=== PATIENT | female | born 1940 | race Caucasian/White ===

== ENCOUNTER 2018-10-18 16:38 | Inpatient (IN) | payer MEDICARE, OTHER ==
[2018-10-18] MEDS ORDERED: Morphine 10 MG/ML VIAL (1 ml) IV ONE ×2 (17:53→19:10)
[2018-10-18 18:10] LABS: ABS Basophils 0 10^3/ul (0-0.2); ABS Eosinophils 0 10^3/ul (0-0.6); ABS Lymphocytes 0.9 10^3/ul (1.0-4.8); ABS Monocytes 0.5 10^3/ul (0-0.8); ABS Neutrophils 12.6 10^3/ul (1.5-7.7); ABS Nucleated RBC 0 10^3/ul; Eosinophil % 0.2 %; Hematocrit 39 % (33-41); Hemoglobin 12.6 g/dL (12.0-16.0); Lymphocyte % 6.1 %; Mean Corpuscular HGB Conc 33 g/dL (31-36); Mean Corpuscular Hemoglobin 28 pg (27-31); Mean Corpuscular Volume 86 fL (80-97); Mean Platelet Volume 7.5 fL (7.4-10.4); Nucleated Red Blood Cells % 0; Platelet Count 330 10^3/uL (150-450); Red Blood Count 4.47 10^6 /uL (3.70-4.87); Red Cell Distribution Width 14 % (10.5-15)
[2018-10-18 18:19] LABS: Activated Partial Thrombo Time 25.5 seconds (26.0-36.3); INR 1.08 (0.77-1.02)
[2018-10-18 18:25] LABS: Albumin 4.1 g/dL (3.2-5.2); BUN/Creatinine Ratio 25.7 (8-20); EGFR African American 91.8 (>60); EGFR Non-African American 75.9 (>60); Globulin 2.1 g/dL (2-4); Potassium 3.9 mmol/L (3.5-5.0); Total Bilirubin 0.7 mg/dL (0.2-1.0); Total Protein 6.2 g/dL (6.4-8.9)
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
--- NOTE | 2018-10-18 19:48 | OP ---
Operative Report - Blank - Operative Report Date of Operation: 10/18/18 Note: Orthopedic Surgery Consultation Date: 10/18/2018 Requesting Service: ER Chief Complaint: Left hip pain. History: A 78-year-old woman who was walking her dog this afternoon, when the dog went to run and pulled on her leash making her fall. She denies pain anywhere other than her left hip. Denies head strike or loss of consciousness. Denies any prior problems with the hip. The pain is located at the left hip and is constant moderate, sharp. Pain worse with hip ROM and lessened when rested. Review of Systems: Negative for fever, recent visual changes, difficulty swallowing, chest pain, shortness of breath, abdominal pain, hematuria, easy bruising, diffuse weakness or lack of coordination, and diffuse rash. PMH: Atrial fibrillation, GERD, hypertension PSH: Lumbar spinal fusion, Medications: Metoprolol, furosemide, warfarin, lansoprazole, losartan, baby aspirin Allergies: Penicillin, sulfa SH: She recently sold her house and is currently living with her son. No ambulatory assistive devices at baseline. She is quite active. No tobacco or alcohol use. FH: Noncontributory Physical Examination: Constitutional: Temp Pulse Resp BP Pulse Ox 98.4 F 83 18 117/77 94 10/18/18 16:58 10/18/18 19:00 10/18/18 19:18 10/18/18 18:53 10/18/18 19:00 General appearance is healthy and non-septic in no acute distress. Cardiovascular: Pulse examination demonstrates positive pedal pulses with brisk capillary refill. There are no varicosities. Abdomen: Soft and nontender Lymphatic: No lymphadenopathy appreciated. Skin: Bilateral upper and lower extremity examination demonstrates no ulcerative lesions. Psychiatric / Neurological: Appropriate affect. Alert and oriented to person, place and time. There is no significant abnormality in coordination appreciated. Normoreflexive deep tendon reflex of the affected extremity. Musculoskeletal: Bilateral upper extremities and contralateral lower extremity show full range of motion with no evidence of instability and no tenderness with palpation and 5 /5 strength. There is no gross deformity. The extremity is shortened and externally rotated Skin intact 5/5 motor strength distally with intact sensation to light touch There is no global swelling, edema, or varicosities. Pain with logroll and heel strike No TTP at knee, lower leg, ankle, foot Palpable DP pulse. Flexes and extends ankle and toes. Imaging: X-rays were obtained, and independently interpreted and show a displaced left femoral neck fracture. Labs: WBC 14.0 HCT 39 Platelets 330 Cr 0.74 INR 1.08 Impression and Plan: Displaced left femoral neck fracture. We discussed both nonoperative and operative treatment options. My recommendation is surgical intervention when medically cleared. We discussed the risks/benefits and pros/cons of both options. She is being admitted to the medical service. For now, nonweightbearing in the left lower extremity. Appreciate medical clearance. I recommend chemical and mechanical DVT prophylaxis, but please hold her warfarin in preparartion for surgery. Florentin Kessler MD
[2018-10-18] MEDS ORDERED: Ondansetron INJ* 2 MG/ML VIAL IV PRN (20:21)
[2018-10-18] MEDS ORDERED: Al Hydrox/Mg Hydrox/Simet LIQ* 30 ML UDC PO PRN (20:21)
[2018-10-18] MEDS ORDERED: Morphine INJ* 2 MG/ML 1 ML SYRINGE (TWO MG - NEW SYRINGE VERSION) IV PRN (20:21)
[2018-10-18] MEDS: Morphine 4 MG/ML VIAL (1 ml) 4 MG/ML VIAL IV PRN (21:35)
--- NOTE | 2018-10-18 22:14 | HP ---
CC: Simon Arciniega MD * HISTORY AND PHYSICAL: DATE OF ADMISSION: 10/18/18 TIME OF EVALUATION: 1999 PRIMARY CARE PHYSICIAN: Simon Arciniega MD CHIEF COMPLAINT: Fall and left hip injury. HISTORY OF PRESENT ILLNESS: This is a 78-year-old female with a past medical history of paroxysmal atrial fibrillation, on Coumadin, who presents to the emergency room after having a mechanical fall. The patient states she was in her usual state of health when she took the dog out with the chain. He began running out into the road because it saw a person. She held onto the chain. She was worried he was going to run into the road and he pulled her and dragged her off the steps into the lawn and she did not let go and suffered a significant amount of left-sided hip pain. She was brought in via ambulance and discovered to have displaced left femoral neck fracture. The patient states she was in her usual state of health prior to this. No chest pain, no shortness of breath. She normally ambulates independently without any assistive devices. She ambulates the stairs without any chest pain or shortness of breath. She states she recently sold her house and has been living with her son and his 28-year-old girl and has been more active recently, has lost some weight. No lower extremity swelling, no abdominal pain, no weakness. She was planning to go to [place] in a few days to assess her living situation as she was thinking about relocating there. In the emergency room, the patient had labs, imaging. She was found to, as mentioned, have a left hip fracture. Dr. Kessler evaluated the patient and recommended surgery when she was medically cleared. In the emergency room, the patient was given 4 mg of morphine IV. Otherwise, review of systems is negative. PAST MEDICAL HISTORY: 1. History of diastolic heart failure. 2. Hypertension. 3. Paroxysmal atrial fibrillation. 4. GERD. PAST SURGICAL HISTORY: 1. Lumbar spinal fusion in 2015. 2. History of . MEDICATIONS: 1. Warfarin 2.5 mg p.o. daily. 2. Losartan 100 mg p.o. daily. 3. Tylenol 500 mg every 4 hours as needed. 4. Metoprolol succinate 25 mg daily. 5. Furosemide 40 mg daily. 6. Aspirin 81 mg daily. 7. Lansoprazole 30 mg daily. ALLERGIES: PENICILLIN and SULFA. FAMILY HISTORY: Reviewed and noncontributory. SOCIAL HISTORY: The patient as mentioned has recently sold her house in [place]. She is currently living with her son and 28-year-old granddaughter. She ambulates independently. She quit smoking 4 years ago; at that time, she smoked 3/4 of a pack per day for 40 years. Rare alcohol use. Her son, Drew Saab, is her healthcare proxy. Code status is full code. REVIEW OF SYSTEMS: A 14-point review of systems as mentioned in the HPI; otherwise, negative. PHYSICAL EXAMINATION GENERAL: No acute distress, resting comfortably. VITAL SIGNS: Temp 98.4, pulse rate 79, respiratory rate 18, oxygen saturation 96% on 2 L, blood pressure 117/77. HEENT: Head normocephalic. Pupils equal and reactive. Oropharynx: Mucous membranes moist. No erythema or exudate. NECK: Supple, no lymphadenopathy. RESPIRATORY: Diminished breath sounds. No wheezing, rhonchi, or rales. CARDIAC: Regular rate and rhythm. Soft systolic murmur heard throughout. ABDOMEN: Positive bowel sounds. Soft, nontender, nondistended. EXTREMITIES: Left lower extremity is short and externally rotated. +2 DPs bilateral. She has significant amount of varicosities bilaterally. Sensation intact. Able to move her extremities and good cap refill. NEUROLOGIC: Alert and oriented x3. No gross focal neurologic deficits. DIAGNOSTIC STUDIES/LAB DATA: White count 14, hemoglobin 12.6, hematocrit 39, platelets 330. INR is 1.08. Sodium 141, potassium 3.9, chloride 106, bicarb 29 , BUN 19, creatinine 0.74, glucose 119, lactic acid is 1. Radiographic data: Abdomen and pelvis x-ray shows displaced femoral neck fracture. EKG shows sinus rhythm with PACs. ASSESSMENT: This is a 78-year-old female with past medical history of hypertension; atrial fibrillation, on Coumadin; diastolic heart failure; who presents to the emergency room after suffering a mechanical fall, found to have a left femoral neck fracture. 1. Left femoral neck fracture. Assessment: Mechanical fall. There is no contraindication to proceeding with surgery. Her RCRI index is 1 with her history of heart failure. Plan: Per Surgery. As mentioned, no contraindication to proceeding for surgery. We will get a baseline chest x-ray. We will continue to hold her aspirin and her Coumadin. We will also hold her losartan and Lasix and continue her on her metoprolol. Recommend resuming her Coumadin and aspirin postoperatively as well as her losartan and Lasix when it is indicated. Continue her on pain management. We will include a bowel regimen as well. We will also place a Siegel catheter and keep her on bedrest until she proceeds to the OR. We will keep her n.p.o. After midnight. We will place her on gentle IV fluids at midnight. 2. Gastroesophageal reflux disease. We will continue her on pantoprazole and place her on lansoprazole. 3. FEN. Regular diet. N.p.o. after midnight with gentle IV fluids. 4. DVT prophylaxis. The patient scores high risk. We will place her on heparin subcu t.i.d. 5. Code status: Full code. PATIENT TIME: Greater than 45 minutes was spent doing the history and physical , more than half the time was spent in direct patient contact. [id number]/[facility] #: [id number] ANNETTE
[2018-10-18] MEDS: NS 0.9% 1000 ML** 1,000 ML IV SCH (22:58)
[2018-10-18] MEDS: Senna TAB PO SCH (23:02)
[2018-10-18] MEDS: Docusate CAP* 100 MG PO SCH (23:02)
[2018-10-18] MEDS: Heparin VIAL(*) 5000 UNITS/ML VIAL (FIVE THOUSAND) SUBCUT SCH (23:37)
[2018-10-18] MEDS: oxyCODONE/Acetamin 5/325 MG* TAB PO PRN (23:42)
[2018-10-19] MEDS: Morphine 4 MG/ML VIAL (1 ml) 4 MG/ML VIAL IV PRN ×4 (03:28→19:36)
[2018-10-19 05:18] LABS: ABS Basophils 0 10^3/ul (0-0.2); ABS Eosinophils 0.1 10^3/ul (0-0.6); ABS Lymphocytes 1.6 10^3/ul (1.0-4.8); ABS Monocytes 0.4 10^3/ul (0-0.8); ABS Nucleated RBC 0 10^3/ul; Eosinophil % 0.7 %; Hematocrit 38 % (33-41); Hemoglobin 12.4 g/dL (12.0-16.0); Lymphocyte % 13.9 %; Mean Corpuscular HGB Conc 33 g/dL (31-36); Mean Corpuscular Hemoglobin 28 pg (27-31); Mean Corpuscular Volume 87 fL (80-97); Mean Platelet Volume 7.5 fL (7.4-10.4); Nucleated Red Blood Cells % 0; Platelet Count 295 10^3/uL (150-450); Red Blood Count 4.42 10^6 /uL (3.70-4.87); Red Cell Distribution Width 15 % (10.5-15); White Blood Count 11.2 10^3/uL (3.5-10.8)
[2018-10-19 05:26] LABS: INR 1.13 (0.77-1.02)
[2018-10-19] MEDS: Heparin VIAL(*) 5000 UNITS/ML VIAL (FIVE THOUSAND) SUBCUT SCH ×2 (05:30→14:01)
[2018-10-19 05:36] LABS: BUN/Creatinine Ratio 28.6 (8-20); Calcium 8.6 mg/dL (8.6-10.3); EGFR African American 97.9 (>60); EGFR Non-African American 80.9 (>60); Magnesium 1.8 mg/dL (1.9-2.7); Potassium 3.8 mmol/L (3.5-5.0)
[2018-10-19] MEDS: Docusate CAP* 100 MG PO SCH ×2 (07:34→20:05)
[2018-10-19] MEDS ORDERED: Magnesium Sulfate 2 GM IV* 2 GM/50 ML BAG IVPB ONE (07:47)
[2018-10-19] MEDS: Metoprolol Succinate XL TAB* 25 MG PO SCH (08:29)
[2018-10-19] MEDS: Pantoprazole TAB * 40 MG TAB PO SCH (08:29)
[2018-10-19] MEDS: Senna TAB PO SCH ×2 (08:29→20:05)
--- NOTE | 2018-10-19 08:36 | PN ---
Progress Note - Progress Note Date of Service: 10/19/18 Note: Orthopedic Progress note: 78 yo woman referred to me by Dr. Kessler with a displaced left femoral neck fracture. This happened yesterday accidentally when walking her dog on a leash and the dog bolted and pulled her over. She does not have other injuries. H&P was done by Dr. Kessler. Patient has had cephalosporins and is OK for Ancef. PMH: A Fib, GERD, spinal fusion in [place]. She is on Coumadin and none today or yesterday and she is not certain about 10/17. Px: Awake, alert, cooperative and not acutely distressed at rest. She is not eager to move the left hip. She moves her right leg with ease, and can move the left ankle up and down actively. INR is 1.08, then 1.13. aPTT 25.5, H/H 12/38. WBC 11,200, PLTS 295,000. Mg 1.8. Impression: Displaced left femoral neck fracture. Plans: Left total hip replacement. Other treatments discussed and lesser surgery has 30-40% chance of not working out or not relieving pain as well as a hip replacement. Risks, complications of hip replacement like infection, dislocation, leg length inequality, nerve injury, blood loss were reviewed and questions answered.
[2018-10-19] MEDS: oxyCODONE/Acetamin 5/325 MG* TAB PO PRN (10:01)
--- NOTE | 2018-10-19 12:53 | PN ---
Subjective Date of Service: 10/19/18 Interval History: Ms. Saab is feeling a bit better today. Her pain remains an 8/10 at rest, but decreases to 4/10 after pain medication. She is also using ice which is somewhat helpful. She denies CP, SOB, N/V. Nursing reported some hypoxia this morning. She was requiring 4L NC to maintain saturations in the low 90s, but no respiratory distress. Family History: Unchanged from Admission Social History: Unchanged from Admission Past Medical History: Unchanged from Admission Objective Active Medications: Acetaminophen (Tylenol Tab*) 650 mg PO Q4H PRN FEVER/PAIN Al Hydrox/Mg Hydrox/Simethicone (Maalox Plus*) 30 ml PO Q6H PRN INDIGESTION Docusate Sodium (Colace Cap*) 100 mg PO BID [facility] Heparin Sodium (Porcine) (Heparin Vial(*)) 5,000 units SUBCUT Q8HR [facility] Sodium Chloride (Ns 0.9% 1000 Ml) 1,000 mls @ 75 mls/hr IV PER RATE [facility] Metoprolol Succinate (Toprol Xl Tab*) 25 mg PO DAILY [facility] Morphine Sulfate (Morphine 4 Mg/Ml Vial (1 Ml)) 2 mg IV Q4H PRN PAIN - MILD Ondansetron HCl (Zofran Inj*) 4 mg IV Q4H PRN NAUSEA/VOMITING Oxycodone/Acetaminophen (Percocet 5/325 Tab*) 1 tab PO Q4H PRN Pain Pantoprazole Sodium (Protonix Tab*) 40 mg PO DAILY [facility] Senna (Senokot Tab*) 1 tab PO BID [facility] Vital Signs - 8 hr 10/19/18 10/19/18 10/19/18 07:12 07:39 08:00 Temperature Pulse Rate Respiratory 20 18 18 Rate Blood Pressure (mmHg) O2 Sat by Pulse Oximetry 10/19/18 10/19/18 09:44 10:01 Temperature 99.3 F Pulse Rate 120 Respiratory 18 18 Rate Blood Pressure 98/57 (mmHg) O2 Sat by Pulse 91 Oximetry Oxygen Devices in Use Now: Nasal Cannula - 2L Appearance: Elderly female laying in bed in NAD Eyes: No Scleral Icterus Ears/Nose/Mouth/Throat: Mucous Membranes Moist Neck: NL Appearance and Movements; NL JVP, Trachea Midline Respiratory: Symmetrical Chest Expansion and Respiratory Effort, Clear to Auscultation Cardiovascular: NL Sounds; No Murmurs; No JVD, RRR Abdominal: NL Sounds; No Tenderness; No Distention Extremities: No Edema Skin: No Rash or Ulcers Neurological: Alert and Oriented x 3 Lines/Tubes/Other Access: Clean, Dry and Intact Peripheral IV Result Diagrams: 10/19/18 04:56 10/19/18 04:56 Assess/Plan/Problems-Billing Assessment: Ms. Saab is a 78 yo F with PMH of paroxsymal afib, dCHF, HTN, and GERD; who presented to the ED after a mechanical fall with subsequent hip pain and was found to have a left femoral neck fracture. - Patient Problems (1) Fracture of femoral neck, left Code(s): S72.002A - FRACTURE OF UNSP PART OF NECK OF LEFT FEMUR, INIT Comment : - Secondary to mechanical fall - Xray shows nondisplaced fracture - Management per Ortho; plan for surgery tomorrow - NPO after midnight; stop heparin tonight - Continue morphine, Percocet (2) Paroxysmal atrial fibrillation Code(s): I48.0 - PAROXYSMAL ATRIAL FIBRILLATION Comment: - Rate controlled - Hold warfarin - Continue metoprolol (3) Chronic diastolic congestive heart failure Code(s): I50.32 - CHRONIC DIASTOLIC (CONGESTIVE) HEART FAILURE Comment: - Stable, not in exacerbation - Hold furosemide - Continue metoprolol (4) Hypertension Code(s): I10 - ESSENTIAL (PRIMARY) HYPERTENSION Comment: - Normotensive, SBP 90-120s - Hold losartan - Continue metoprolol (5) GERD (gastroesophageal reflux disease) Code(s): K21.9 - GASTRO-ESOPHAGEAL REFLUX DISEASE WITHOUT ESOPHAGITIS Comment : - Continue pantoprazole (6) DVT prophylaxis Comment: - Heparin SQ (7) Full code status Code(s): Z78.9 - OTHER SPECIFIED HEALTH STATUS Comment: Status and Disposition: Inpatient. Anticipate d/c home vs [facility] when medically stable and cleared by Ortho. Attending: Simi Arteaga
[2018-10-19] MEDS: NS 0.9% 1000 ML** 1,000 ML IV SCH ×2 (14:01→23:59)
[2018-10-19] MEDS ORDERED: Buffered Lidocaine 1% SYRIN* 1 ML/SYRINGE INTRADERM ONE (14:29)
[2018-10-19] MEDS: Acetaminophen TAB* 325 MG PO PRN (20:02)
[2018-10-19 21:25] LABS: ABS Basophils 0 10^3/ul (0-0.2); ABS Eosinophils 0.1 10^3/ul (0-0.6); ABS Lymphocytes 0.8 10^3/ul (1.0-4.8); ABS Monocytes 0.7 10^3/ul (0-0.8); ABS Neutrophils 11.1 10^3/ul (1.5-7.7); ABS Nucleated RBC 0 10^3/ul; Eosinophil % 0.8 %; Hematocrit 38 % (33-41); Hemoglobin 12.2 g/dL (12.0-16.0); Lymphocyte % 6.5 %; Mean Corpuscular HGB Conc 33 g/dL (31-36); Mean Corpuscular Hemoglobin 28 pg (27-31); Mean Corpuscular Volume 87 fL (80-97); Mean Platelet Volume 7.8 fL (7.4-10.4); Nucleated Red Blood Cells % 0.1; Platelet Count 264 10^3/uL (150-450); Red Blood Count 4.35 10^6 /uL (3.70-4.87); Red Cell Distribution Width 15 % (10.5-15); White Blood Count 12.8 10^3/uL (3.5-10.8)
[2018-10-19] MEDS: cefTRIAXone(*) 1 GM in NS 0.9% 50 ML* 50 ML IVPB SCH (21:27)
--- NOTE | 2018-10-19 21:30 | PN ---
Hospitalist Progress Note Date of Service: 10/19/18 Called by Nursing staff for low oxygen saturations 85 % on 2 liters, and tachycardia HR 130's. Assessed patient at the bedside skin hot to the touch , lung with exp wheezes and diminished at the bases bilat, respirations not labored. Patient alert and oriented x3. NO alteration in mentation. ordered rectal temp 102.5 , HR 125 respirations 22 suspected source lungs. Oxygen increased to 5 liters NC. CODE sepsis called. STAT CBC,BMP, Lactic acid and blood cultures ordered. UA and culture ordered. Tylenol po given
[2018-10-19 21:42] LABS: BUN/Creatinine Ratio 30.5 (8-20); Calcium 8.1 mg/dL (8.6-10.3); EGFR African American 119.3 (>60); EGFR Non-African American 98.6 (>60); Potassium 3.9 mmol/L (3.5-5.0)
[2018-10-19 21:42] LABS: Urine Appearance Cloudy; Urine Bacteria 1+ (Absent); Urine Bilirubin Negative (Negative); Urine Blood 3+ (Negative); Urine Color Yellow; Urine Glucose 1+(50 mg/dL) (Negative); Urine Ketones 2+ (Negative); Urine Nitrite Negative (Negative); Urine Protein 2+(100 mg/dL) (Negative); Urine Red Blood Cell 3+(>10/hpf) (Absent); Urine Specific Gravity 1.027 (1.010-1.030); Urine Squamous Epithelial Cell Present (Absent); Urine Urobilinogen Negative (Negative); Urine White Blood Cell 2+(11-20/hpf) (Absent)
[2018-10-19] MEDS ORDERED: Iohexol 350* (CONTRAST) 500 ML MDV IV ONE (21:43)
[2018-10-19] MEDS ORDERED: Albuterol 2.5 MG/3 ML NEB.SOL* (0.083%) INH PRN (23:10)
[2018-10-19] MEDS ORDERED: NS 0.9% 500 ML* 500 ML IV ONE (23:12)
--- NOTE | 2018-10-19 23:52 | PN ---
Sepsis Event Evaluation Date of Evaluation: 10/19/18 Current Stage of Sepsis: Sepsis Vital Signs - Last 12 Hours: Vital Signs - 12 hr Temp Pulse Resp BP Pulse Ox 10/19/18 21:30 20 10/19/18 20:37 102.5 F 10/19/18 19:48 134 22 108/90 88 10/19/18 19:36 18 10/19/18 16:09 98.5 F 102 20 106/48 93 10/19/18 15:37 16 10/19/18 14:01 18 10/19/18 13:30 18 10/19/18 12:48 98.6 F 85 16 111/85 93 Lactic Acid: 10/18/18 10/19/18 18:01 21:16 Lactic Acid 1.0 1.0 - Cardiopulmonary Exam Capillary Refill: Immediate Respiratory: Symmetrical Chest Expansion and Respiratory Effort, - - crackles at the bases bilat, few scattered exp wheezes Cardiovascular: NL Sounds; No Murmurs; No JVD, No Edema - Peripheral Pulse Exam Radial Pulses: Bilateral Normal Pedal Pulses: Bilateral Normal - Skin Exam Skin Exam: Normal Turgor - Stebbins Coma Scale Best Eye Response: 4 - Spontaneous Best Motor Response: 6 - Obeys Commands Best Verbal Response: 5 - Oriented Coma Scale Total: 15 Assess/Plan/Problems-Billing Assessment: Ms. Saab is a 78 yo F with PMH of paroxsymal afib, dCHF, HTN, and GERD; who presented to the ED after a mechanical fall with subsequent hip pain and was found to have a left femoral neck fracture. - Patient Problems (1) Sepsis Current Visit: Yes Status: Acute Comment: temp 102.5, hr 130's, resp 22, o2 sat 85% on 2 liters Blood culture are pending - urine culture is pending - Wbc's 12.8 - lactic acid wnl - suspect this is related to UTI - ceftriaxone was started (2) UTI (urinary tract infection) Current Visit: Yes Status: Acute Comment: ceftriaxone started (3) Hypertension Current Visit: Yes Status: Acute Code(s): I10 - ESSENTIAL (PRIMARY) HYPERTENSION SNOMED Code(s): 06124947 Comment: - Normotensive, SBP 90-120s - Hold losartan - Continue metoprolol (4) Paroxysmal atrial fibrillation Current Visit: Yes Status: Acute Code(s): I48.0 - PAROXYSMAL ATRIAL FIBRILLATION SNOMED Code(s): 078100791 Comment: - Rate controlled - Hold warfarin - Continue metoprolol Status and Disposition: Inpatient. Anticipate d/c home vs RAFAEL when medically stable and cleared by Ortho.
[2018-10-20 00:15] LABS: Influenza A Molecular NEGATIVE (Negative); Influenza B Molecular NEGATIVE (Negative)
[2018-10-20] MEDS: Morphine 4 MG/ML VIAL (1 ml) 4 MG/ML VIAL IV PRN ×4 (03:20→16:52)
[2018-10-20 05:37] LABS: ABS Basophils 0.1 10^3/ul (0-0.2); ABS Eosinophils 0.3 10^3/ul (0-0.6); ABS Lymphocytes 1.3 10^3/ul (1.0-4.8); ABS Monocytes 0.6 10^3/ul (0-0.8); ABS Neutrophils 7.3 10^3/ul (1.5-7.7); ABS Nucleated RBC 0 10^3/ul; Eosinophil % 3.4 %; Hematocrit 36 % (33-41); Hemoglobin 11.9 g/dL (12.0-16.0); Lymphocyte % 13.5 %; Mean Corpuscular HGB Conc 33 g/dL (31-36); Mean Corpuscular Hemoglobin 29 pg (27-31); Mean Corpuscular Volume 87 fL (80-97); Nucleated Red Blood Cells % 0.1; Platelet Count 234 10^3/uL (150-450); Red Blood Count 4.16 10^6 /uL (3.70-4.87); Red Cell Distribution Width 15 % (10.5-15); White Blood Count 9.6 10^3/uL (3.5-10.8)
[2018-10-20 05:42] LABS: INR 1.27 (0.77-1.02)
[2018-10-20 05:52] LABS: Anion Gap 3 mmol/L (2-11); BUN/Creatinine Ratio 24.6 (8-20); Blood Urea Nitrogen 14 mg/dL (6-24); CO2 Carbon Dioxide 27 mmol/L (22-32); Calcium 7.9 mg/dL (8.6-10.3); Chloride 109 mmol/L (101-111); EGFR African American 124.1 (>60); EGFR Non-African American 102.6 (>60); Glucose 93 mg/dL (70-100); Potassium 4.1 mmol/L (3.5-5.0); Sodium 139 mmol/L (135-145)
[2018-10-20] MEDS ORDERED: Lactated Ringers 1000 ML Bag* 1,000 ML IV SCH (06:00)
[2018-10-20] MEDS: Metoprolol Succinate XL TAB* 25 MG PO SCH ×2 (06:19→07:24)
[2018-10-20] MEDS ORDERED: Bupivacaine 0.5%* 50 ML VIAL ONE (06:47)
[2018-10-20 07:38] LABS: Troponin I 0.06 ng/mL (<0.04)
--- NOTE | 2018-10-20 07:44 | CONSULT ---
Consult Consult: 78 yo woman with PMH significant for paroxysmal A fib, HTN, GERD who had a mechanical fall resulting in a left femoral neck fracture. She was scheduled for surgical repair this AM, but a code sepsis was called for A fib with RVR, new oxygen requirement, tachypnea, and fever. She m/l has a UTI and blood cultures are pending. CT and CXR are suggestive of pulmonary HTN, which is a new finding for her. The cause of her pulmonary HTN is unclear. Unless, she was very acidotic, the UTI does not explain her pulmonary HTN. The CT did not show evidence of a pulmonary emboli. She did however, have A fib with RVR. I spoke with Dr. Jesus who said that she would order an echocardiogram to evaluate her heart function. I appreciate this and think that it would be a good study to have done prior to receiving anesthesia. Most specifically, I am interested in an estimate of the severity of her pulmonary HTN as well as her left heart function and any potential right sided heart strain. On my exam of her I did not see evidence of right sided heart failure. She is currently still on 5L NC. Thank you so much for your care. - Soraya Jo DO [facility]
--- NOTE | 2018-10-20 07:49 | PN ---
Progress Note - Progress Note Date of Service: 10/20/18 SOAP: Subjective: Pt. is in bed with family at bedside. She is alert, reports pain in L hip is beginning to increase. Objective: Vital Signs: Temp Pulse Resp BP Pulse Ox 98.2 F 88 18 113/72 98 10/20/18 04:42 10/20/18 04:42 10/20/18 07:30 10/20/18 04:42 10/20/18 04:42 Laboratory Results - last 24 hr 10/19/18 10/19/18 10/19/18 21:16 21:16 21:16 WBC 12.8 H RBC 4.35 Hgb 12.2 Hct 38 MCV 87 MCH 28 MCHC 33 RDW 15 Plt Count 264 MPV 7.8 Neut % (Auto) 86.7 Lymph % (Auto) 6.5 [place] % (Auto) 5.6 Eos % (Auto) 0.8 Baso % (Auto) 0.4 Absolute Neuts (auto) 11.1 H Absolute Lymphs (auto) 0.8 L Absolute Monos (auto) 0.7 Absolute Eos (auto) 0.1 Absolute Basos (auto) 0 Absolute Nucleated RBC 0 Nucleated RBC % 0.1 INR (Anticoag Therapy) Sodium 135 Potassium 3.9 Chloride 105 Carbon Dioxide 23 Anion Gap 7 BUN 18 Creatinine 0.59 Est GFR ( Amer) 119.3 Est GFR (Non-Af Amer) 98.6 BUN/Creatinine Ratio 30.5 H Glucose 123 H Lactic Acid 1.0 Calcium 8.1 L Troponin I Urine Color Urine Appearance Urine pH Ur Specific [place] Urine Protein Urine Ketones Urine Blood Urine Nitrate Urine Bilirubin Urine Urobilinogen Ur Leukocyte Esterase Urine WBC (Auto) Urine RBC (Auto) Ur Squamous Epith Cells Urine Bacteria Urine Glucose Influenza A (Rapid) Influenza B (Rapid) 10/19/18 10/20/18 10/20/18 21:28 00:03 04:59 WBC 9.6 RBC 4.16 Hgb 11.9 L Hct 36 MCV 87 MCH 29 MCHC 33 RDW 15 Plt Count 234 MPV 8.0 Neut % (Auto) 75.9 Lymph % (Auto) 13.5 [place] % (Auto) 6.6 Eos % (Auto) 3.4 Baso % (Auto) 0.6 Absolute Neuts (auto) 7.3 Absolute Lymphs (auto) 1.3 Absolute Monos (auto) 0.6 Absolute Eos (auto) 0.3 Absolute Basos (auto) 0.1 Absolute Nucleated RBC 0 Nucleated RBC % 0.1 INR (Anticoag Therapy) Sodium Potassium Chloride Carbon Dioxide Anion Gap BUN Creatinine Est GFR ( Amer) Est GFR (Non-Af Amer) BUN/Creatinine Ratio Glucose Lactic Acid Calcium Troponin I Urine Color Yellow Urine Appearance Cloudy Urine pH 5.0 Ur Specific [place] 1.027 Urine Protein 2+(100 mg/dl) A Urine Ketones 2+ A Urine Blood 3+ A Urine Nitrate Negative Urine Bilirubin Negative Urine Urobilinogen Negative Ur Leukocyte Esterase Trace A Urine WBC (Auto) 2+(11-20/hpf) A Urine RBC (Auto) 3+(>10/hpf) A Ur Squamous Epith Cells Present A Urine Bacteria 1+ A Urine Glucose 1+(50 mg/dl) A Influenza A (Rapid) Negative Influenza B (Rapid) Negative 10/20/18 10/20/18 04:59 04:59 WBC RBC Hgb Hct MCV MCH MCHC RDW Plt Count MPV Neut % (Auto) Lymph % (Auto) [place] % (Auto) Eos % (Auto) Baso % (Auto) Absolute Neuts (auto) Absolute Lymphs (auto) Absolute Monos (auto) Absolute Eos (auto) Absolute Basos (auto) Absolute Nucleated RBC Nucleated RBC % INR (Anticoag Therapy) 1.27 H Sodium 139 Potassium 4.1 Chloride 109 Carbon Dioxide 27 Anion Gap 3 BUN 14 Creatinine 0.57 Est GFR ( Amer) 124.1 Est GFR (Non-Af Amer) 102.6 BUN/Creatinine Ratio 24.6 H Glucose 93 Lactic Acid Calcium 7.9 L Troponin I 0.06 H* Urine Color Urine Appearance Urine pH Ur Specific [place] Urine Protein Urine Ketones Urine Blood Urine Nitrate Urine Bilirubin Urine Urobilinogen Ur Leukocyte Esterase Urine WBC (Auto) Urine RBC (Auto) Ur Squamous Epith Cells Urine Bacteria Urine Glucose Influenza A (Rapid) Influenza B (Rapid) LLE - nvi, skin intact, distally df/pf, 2+ dp pulse. ttp L hip. Assessment: 78 yo F s/p fall with L femoral neck fx - ortho plan is LTHA when medically optimized. Plan: PRN analgesia UTI - agree with 24 hours of abx before we proceed. Echo today - will eval pulm htn and afib. code sepsis - will follow cultures CT neg for PE Ortho to follow - tentative plan 8 am LTHA on 10/21. Discussed with hospitalists and we will communicate today on patient progress. Thank you.
--- NOTE | 2018-10-20 08:31 | PN ---
Subjective Date of Service: 10/20/18 Interval History: Ms. Saab is feeling better this morning. She had a difficult night. Denies CP, N/V. She denies any SOB and denies ever having any respiratory issues in the past. Daughter is at bedside and notes that she does feel as though the patient has had some respiratory difficulties, but is not able to elaborate any further. Patient reports smoking less than 1 ppd for approx 40 years, quit about 4 years ago. There was a code sepsis called overnight and she was started on ceftriaxone for a UTI. Nursing reports pain is not managed with current dose of morphine. Family History: Unchanged from Admission Social History: Unchanged from Admission Past Medical History: Unchanged from Admission Objective Active Medications: Acetaminophen (Tylenol Tab*) 650 mg PO Q4H PRN FEVER/PAIN Al Hydrox/Mg Hydrox/Simethicone (Maalox Plus*) 30 ml PO Q6H PRN INDIGESTION Albuterol (Ventolin 2.5 Mg/3 Ml Neb.Jenna*) 2.5 mg INH Q4H PRN SOB/WHEEZING Docusate Sodium (Colace Cap*) 100 mg PO BID HOLDEN Sodium Chloride (Ns 0.9% 1000 Ml) 1,000 mls @ 75 mls/hr IV PER RATE HOLDEN Lactated Ringer's (Lactated Ringers 1000 Ml Bag*) 1,000 mls @ 125 mls/hr IV PER RATE HOLDEN Ceftriaxone Sodium 1 gm/ (Sodium Chloride) 50 mls @ 200 mls/hr IVPB Q24H HOLDEN Metoprolol Succinate (Toprol Xl Tab*) 25 mg PO DAILY HOLDEN Morphine Sulfate (Morphine 4 Mg/Ml Vial (1 Ml)) 2 mg IV Q4H PRN PAIN - MILD Ondansetron HCl (Zofran Inj*) 4 mg IV Q4H PRN NAUSEA/VOMITING Oxycodone/Acetaminophen (Percocet 5/325 Tab*) 1 tab PO Q4H PRN Pain Pantoprazole Sodium (Protonix Tab*) 40 mg PO DAILY HOLDEN Senna (Senokot Tab*) 1 tab PO BID [facility] Vital Signs - 8 hr 10/20/18 10/20/18 10/20/18 03:20 04:42 04:44 Temperature 98.2 F Pulse Rate 88 Respiratory 16 20 16 Rate Blood Pressure 113/72 (mmHg) O2 Sat by Pulse 98 Oximetry Oxygen Devices in Use Now: Nasal Cannula - 4L Appearance: Elderly female laying in bed in NAD Eyes: No Scleral Icterus Ears/Nose/Mouth/Throat: Mucous Membranes Moist Neck: NL Appearance and Movements; NL JVP, Trachea Midline Respiratory: Symmetrical Chest Expansion and Respiratory Effort, Clear to Auscultation Cardiovascular: NL Sounds; No Murmurs; No JVD, RRR Abdominal: NL Sounds; No Tenderness; No Distention Extremities: No Edema Skin: No Rash or Ulcers Neurological: Alert and Oriented x 3, NL Sensation Lines/Tubes/Other Access: Clean, Dry and Intact Peripheral IV Nutrition: Taking PO's Result Diagrams: 10/20/18 04:59 10/20/18 04:59 Assess/Plan/Problems-Billing Assessment: Ms. Saab is a 78 yo F with PMH of paroxsymal afib, dCHF, HTN, and GERD; who presented to the ED after a mechanical fall with subsequent hip pain and was found to have a left femoral neck fracture. - Patient Problems (1) Fracture of femoral neck, left Code(s): S72.002A - FRACTURE OF UNSP PART OF NECK OF LEFT FEMUR, INIT Comment : - Secondary to mechanical fall - Xray shows nondisplaced fracture - Management per Ortho; plan for surgery tomorrow as long as she is able to be medically optimized today; anesthesia has expressed concern r/t pHTN - Continue morphine, Percocet (2) UTI (urinary tract infection) Comment: - Based on UA; urine culture pending - Continue ceftriaxone (3) COPD (chronic obstructive pulmonary disease) Code(s): J44.9 - CHRONIC OBSTRUCTIVE PULMONARY DISEASE, UNSPECIFIED Comment: - No history of COPD, but CTA shows changes consistent with emphysema and smoking history is consistent with diagnosis - Currently requiring 4L oxygen - Will need outpatient f/u for PFTs and formal diagnosis - Titrate oxygen to maintain sats >90% - Start Dulera, Spiriva, albuterol (4) Sepsis Comment: - Code sepsis overnight for fever, tachycardia, tachypnea, leukocytosis - Source is UTI - Blood and urine cultures pending - Plan as above (5) Paroxysmal atrial fibrillation Code(s): I48.0 - PAROXYSMAL ATRIAL FIBRILLATION Comment: - With RVR - Hold warfarin - Continue metoprolol and give additional metoprolol this AM (6) Chronic diastolic congestive heart failure Code(s): I50.32 - CHRONIC DIASTOLIC (CONGESTIVE) HEART FAILURE Comment: - Stable, not in exacerbation - TTE pending - Hold furosemide - Continue metoprolol (7) Hypertension Code(s): I10 - ESSENTIAL (PRIMARY) HYPERTENSION Comment: - Normotensive, SBP 110s - Hold losartan - Continue metoprolol (8) GERD (gastroesophageal reflux disease) Code(s): K21.9 - GASTRO-ESOPHAGEAL REFLUX DISEASE WITHOUT ESOPHAGITIS Comment : - Continue pantoprazole (9) DVT prophylaxis Comment: - Heparin SQ (10) Full code status Code(s): Z78.9 - OTHER SPECIFIED HEALTH STATUS Comment: Status and Disposition: According to the Revised Cardiac Risk Index, the patient has a score of 1 point indicating a 6% risk of major cardiac event. The patients METS score is 6.27. EKG personally reviewed shows atrial fibrillation with RVR. Echo today reveals EF of 55-60% and no change since 2013 exam. Met sepsis criteria overnight secondary to UTI and was started on ceftriaxone with improvement in VS. CTA overnight unremarkable for PE, but does show evidence of COPD which is consistent with her smoking history. Repeat CXR this morning shows pulmonary edema. Given furosemide and had 900mL urine output. Repeat CXR after furosemide shows improvement in pulmonary edema. She is high risk for surgery d/t her comorbidities, but does not require any further workup at this point. The patient has been medically optimized for surgery tomorrow with Dr. Hyde. Inpatient. Plan for surgery tomorrow. Anticipate d/c home vs RAFAEL when medically stable and cleared by Ortho. Attending: Simi Arteaga
[2018-10-20] MEDS: Pantoprazole TAB * 40 MG TAB PO SCH (08:58)
[2018-10-20] MEDS: Senna TAB PO SCH ×2 (08:58→20:43)
[2018-10-20] MEDS: oxyCODONE/Acetamin 5/325 MG* TAB PO PRN ×2 (08:58→14:48)
[2018-10-20] MEDS: Docusate CAP* 100 MG PO SCH ×2 (08:58→20:43)
[2018-10-20] MEDS ORDERED: Spiriva Inhaler DEVICE* 1 EACH DEVICE INH SCH ×2 (09:00→12:00)
[2018-10-20] MEDS ORDERED: Tiotropium CAP.INH* CAP.INH/18 MCG (USE ORDER SET !) INH SCH (09:00)
--- NOTE | 2018-10-20 10:07 | ECHO ---
Patient: SAVANNAH LUCAS [facility] Rec#: [id number] : 1940 Date: 10/20/2018 Age: 78y Height: 163 cm / 64.2 in Weight: 59 kg / 130.0 lbs Sex: F BSA: 1.6 Room#: [facility] Admit Date#: 10/18/2018 Type: Inpatient Referring: Saskia Klein Reading: Cj Yo MD Curam Developer: Maeve Rossi RN RDCS CC: Simon Arciniega MD Transthoracic Echocardiogram Indication: Hypoxemia, sepsis BP: 113/72 HR: 120 Rhythm: A-Fib Findings History: Paroxysmal A. fib, HTN, diastolic CHF, former smoker, GERD, pre-op for repair of fractured hip Technical Comments: The study quality is fair. The study is technically limited due to poor acoustic windows. The study is technically limited due to the patient's smoking history. The study was technically limited due to the patient's inability to lay in the left lateral decubitus position. Left Ventricle: The left ventricular chamber size is normal. Mild concentric left ventricular hypertrophy is observed. Global left ventricular wall motion and contractility are within normal limits. Left ventricular systolic function is at the lower limits of normal. The estimated ejection fraction is 55-60%. The assessment of diastolic function is non-diagnostic. Left Atrium: The left atrial chamber size is normal. Right Ventricle: Moderator Band present. The right ventricular cavity size is normal. The right ventricular global systolic function is low normal. Right Atrium: The right atrium is not well visualized. The right atrium is mildly dilated. Aortic Valve: The aortic valve is trileaflet. The aortic valve leaflets are mildly thickened. There is trace to mild aortic regurgitation. There is no evidence of aortic stenosis. Mitral Valve: The mitral valve leaflets are mildly thickened. There is trace to mild mitral regurgitation. Tricuspid Valve: The tricuspid valve leaflets are normal. There is mild tricuspid regurgitation. There is evidence of mild to moderate pulmonary hypertension. Pulmonic Valve: The pulmonic valve structure is not well visualized. There is no evidence of pulmonic regurgitation. There is no pulmonic stenosis. Pericardium: There is no significant pericardial effusion. Aorta: There is no dilatation of the ascending aorta. There is no dilatation of the aortic arch. There is no dilation of the aortic root. Pulmonary Artery: The main pulmonary artery is not well visualized. Venous: The inferior vena cava appears normal in size. There is an approximate 50% respiratory change in the inferior vena cava dimension. Conclusions Left ventricular systolic function is at the lower limits of normal. The estimated ejection fraction is 55-60%. Global left ventricular wall motion and contractility are within normal limits. The left ventricular chamber size is normal. Mild concentric left ventricular hypertrophy is observed. The right atrium is mildly dilated. There is mild tricuspid regurgitation. There is evidence of mild to moderate pulmonary hypertension. Sine the prior echocardiogram completed 07/10/13. there appears to be little change. Measurements Name Value Normal Range RVIDd (AP) 2D 2.6 cm (0.9 - 2.6) RVDdMajor (2D) 3.5 cm (2.2 - 4.4) RAd ISD 4CH 4.9 cm (3.4 - 4.9) RA (A4C)W 5.2 cm (2.9 - 4.6) IVSd (2D) 1.1 cm (0.6 - 1) LVPWd (2D) 1.1 cm (0.6 - 1) LVIDd (2D) 3.6 cm (3.6 - 5.4) LVIDs (2D) 2.8 cm - LV FS (2D) 22 % (25 - 45) Aortic Annulus 1.9 cm (1.4 - 2.6) Ao root diameter (2D) 3.4 cm (2.1 - 3.5) Ascending Ao 3.3 cm (2.1 - 3.4) Aortic arch 2.5 cm (1.8 - 3.4) LA dimension (AP) 2D 3.5 cm (2.3 - 3.8) LAd ISD 4CH 4.3 cm (2.9 - 5.3) LA ISD 4CH W 4.2 cm (2.5 - 4.5) Name Value Normal Range LA ESV BP (A/L) index 31.4 ml/m2 - Name Value Normal Range MV E-wave Vmax 0.92 m/sec - MV deceleration time 161 msec - LV septal e' Vmax 0.09 m/sec - LV lateral e' Vmax 0.08 m/sec - LV E:e' septal ratio 10.2 ratio - LV E:e' lateral ratio 11.5 ratio - Name Value Normal Range AV Vmax 1.1 m/sec - AV VTI 16.7 cm - AV peak gradient 5 mmHg - AV mean gradient 3 mmHg - LVOT Vmax 0.74 m/sec - LVOT VTI 8.6 cm - LVOT peak gradient 2 mmHg - LVOT mean gradient 1 mmHg - RADHAMES Vmax 0.32 m/sec - Name Value Normal Range TR Vmax 2.9 m/sec - TR peak gradient 34 mmHg - RAP 8 mmHg - RVSP 42 mmHg - IVC diameter 2.1 cm - Name Value Normal Range PV Vmax 0.75 m/sec -
[2018-10-20 10:43] LABS: Troponin I 0.05 ng/mL (<0.04)
[2018-10-20] MEDS ORDERED: Furosemide IV* 10 MG/ML VIAL (40 MG) IV ONE (10:46)
[2018-10-20] MEDS ORDERED: Metoprolol Succinate XL TAB* 25 MG PO ONE (10:47)
[2018-10-20] MEDS: Mometasone/Formoter 200/5 MDI INH SCH ×2 (11:06→22:02)
[2018-10-20] MEDS: Heparin VIAL(*) 5000 UNITS/ML VIAL (FIVE THOUSAND) SUBCUT SCH ×2 (14:47→21:36)
[2018-10-20] MEDS ORDERED: Digoxin IV* 0.5 MG/2 ML AMP (0.25 MG/ML) IV SLOW PU ONE (17:40)
[2018-10-20] MEDS: cefTRIAXone(*) 1 GM in NS 0.9% 50 ML* 50 ML IVPB SCH (21:36)
[2018-10-20 21:37] LABS: Magnesium 1.9 mg/dL (1.9-2.7)
[2018-10-21] MEDS: Morphine 4 MG/ML VIAL (1 ml) 4 MG/ML VIAL IV PRN ×4 (01:32→21:29)
[2018-10-21] MEDS: Senna TAB PO SCH ×2 (05:05→21:25)
[2018-10-21] MEDS: Docusate CAP* 100 MG PO SCH ×2 (05:05→21:25)
[2018-10-21] MEDS: Pantoprazole TAB * 40 MG TAB PO SCH (05:05)
[2018-10-21] MEDS: Metoprolol Succinate XL TAB* 25 MG PO SCH (05:05)
[2018-10-21] MEDS: Tiotropium CAP.INH* CAP.INH/18 MCG (USE ORDER SET !) INH SCH (05:08)
[2018-10-21] MEDS: Mometasone/Formoter 200/5 MDI INH SCH ×2 (05:08→20:44)
[2018-10-21] MEDS: oxyCODONE/Acetamin 5/325 MG* TAB PO PRN ×4 (05:13→21:25)
[2018-10-21 06:38] LABS: ABS Basophils 0.1 10^3/ul (0-0.2); ABS Eosinophils 0.5 10^3/ul (0-0.6); ABS Lymphocytes 1.7 10^3/ul (1.0-4.8); ABS Monocytes 0.7 10^3/ul (0-0.8); ABS Nucleated RBC 0 10^3/ul; Eosinophil % 5.7 %; Hematocrit 38 % (33-41); Hemoglobin 12.6 g/dL (12.0-16.0); Lymphocyte % 18.9 %; Mean Corpuscular HGB Conc 34 g/dL (31-36); Mean Corpuscular Hemoglobin 29 pg (27-31); Mean Corpuscular Volume 86 fL (80-97); Nucleated Red Blood Cells % 0; Platelet Count 245 10^3/uL (150-450); Red Blood Count 4.36 10^6 /uL (3.70-4.87); Red Cell Distribution Width 15 % (10.5-15)
[2018-10-21 06:47] LABS: INR 1.09 (0.77-1.02)
[2018-10-21 06:58] LABS: BUN/Creatinine Ratio 25.9 (8-20); Calcium 8.3 mg/dL (8.6-10.3); EGFR African American 121.7 (>60); EGFR Non-African American 100.5 (>60); Potassium 3.7 mmol/L (3.5-5.0)
[2018-10-21] MEDS ORDERED: KETAMINE HCL* 50 MG/ML 10 ML VIAL ONE (07:23)
[2018-10-21] MEDS ORDERED: fentaNYL* 50 MCG/ML 2 ML VIAL (100 MCG VIAL) ONE (07:23)
[2018-10-21] MEDS ORDERED: Midazolam* 1 MG/ML 5 ML VIAL (5 MG) ONE (07:23)
[2018-10-21] MEDS ORDERED: Atracurium* 10 MG/ML 10 ML VIAL ONE (07:33)
--- NOTE | 2018-10-21 07:46 | PN ---
Subjective Date of Service: 10/21/18 Interval History: Ms. Saab denies complaint this morning and reports that she feels well. She denies chest pain or SOB. She further denies nausea or abdominal pain. Family History: Unchanged from Admission Social History: Unchanged from Admission Past Medical History: Unchanged from Admission Objective Active Medications: Acetaminophen (Tylenol Tab*) 650 mg PO Q4H PRN Al Hydrox/Mg Hydrox/Simethicone (Maalox Plus*) 30 ml PO Q6H PRN Albuterol (Ventolin 2.5 Mg/3 Ml Neb.Jenna*) 2.5 mg INH Q4H PRN Device (Tiotropium Inhaler Device*) 1 each INH .USE w/ SPIRIVA CAPS HOLDEN Docusate Sodium (Colace Cap*) 100 mg PO 0900,2100 HOLDEN Lactated Ringer's (Lactated Ringers 1000 Ml Bag*) 1,000 mls @ 125 mls/hr IV PER RATE HOLDEN Ceftriaxone Sodium 1 gm/ (Sodium Chloride) 50 mls @ 200 mls/hr IVPB Q24H HOLDEN Metoprolol Succinate (Toprol Xl Tab*) 25 mg PO 0900 HOLDEN Metoprolol Tartrate (Lopressor Iv*) 5 mg IV Q6H PRN Mometasone Furoate/Formoterol Fumar (Dulera 200/5 Mdi*) 2 puff INH 0900,2100 HOLDEN Morphine Sulfate (Morphine 4 Mg/Ml Vial (1 Ml)) 2 mg IV Q4H PRN Ondansetron HCl (Zofran Inj*) 4 mg IV Q4H PRN Oxycodone/Acetaminophen (Percocet 5/325 Tab*) 1 tab PO Q4H PRN Pantoprazole Sodium (Protonix Tab*) 40 mg PO 0900 HOLDEN Senna (Senokot Tab*) 1 tab PO 0900,2100 HOLDEN Tiotropium [place] (Spiriva Cap.Inh*) 1 cap INH 0900 [facility] Vital Signs: Temp Pulse Resp BP Pulse Ox 97.6 F 104 20 138/76 90 10/21/18 05:07 10/21/18 05:07 10/21/18 05:13 10/21/18 05:07 10/21/18 05:07 Oxygen Devices in Use Now: Nasal Cannula Appearance: Female lying in bed in [facility], family at bedside Eyes: No Scleral Icterus Ears/Nose/Mouth/Throat: Mucous Membranes Moist Neck: Trachea Midline Respiratory: Symmetrical Chest Expansion and Respiratory Effort, - - Minimal crackles in bases Cardiovascular: NL Sounds; No Murmurs; No JVD Abdominal: NL Sounds; No Tenderness; No Distention Extremities: No Edema Skin: No Rash or Ulcers Neurological: Alert and Oriented x 3, NL Muscle Strength and Tone Nutrition: Taking PO's Result Diagrams: 10/21/18 06:28 10/21/18 06:28 Additional Lab and Data: . Microbiology and Other Data: . Assess/Plan/Problems-Billing Assessment: Ms. Saab is a 78 yo F with PMH of paroxsymal afib, dCHF, HTN, and GERD; who presented to the ED after a mechanical fall with subsequent hip pain and was found to have a left femoral neck fracture. Developed sepsis criteria on 10/19 with fever, tachycardia, and leukocytosis - thought to be secondary to UTI but cultures negative. Question if related to atlectasis or viral process. Now with acute on chronic diastolic CHF secondary to IVF for sepsis and COPD. - Patient Problems (1) Fracture of femoral neck, left Comment: - Secondary to mechanical fall. Xray shows nondisplaced fracture - Patient on 6L NC this AM with SpO2 of 89-91%. Suspect secondary to fluid overload after appropriate IV fluids for sepsis in setting of diastolic CHF and COPD. CTA shows no PE or infiltrate. Given furosemide yesterday and had 900mL urine output. - Plan to hold surgery and continue diuresis today. (2) Sepsis Comment: - Resolved - Code sepsis for fever, tachycardia, tachypnea, leukocytosis on 10/19. - Suspected source was UTI, though cultures are negative, cxray negative, ? viral syndrome, ? atelectasis - Blood cultures with no growth to date - Continue ceftriaxone for now (3) UTI (urinary tract infection) Comment: - Based on UA; urine culture negative - Continue ceftriaxone for now (4) Chronic diastolic congestive heart failure Comment: - Chest xray with pulmonary edema noted over night, treated with IV furosemide but continues to be hypoxic. - Plan for additional furosemide today - TTE with EF 50-55% and no significant valvular or wall motion abnormalities - Continue metoprolol (5) COPD (chronic obstructive pulmonary disease) Comment: - No history of COPD, but CTA shows changes consistent with emphysema and smoking history is consistent with diagnosis - Currently requiring 6L oxygen - Will need outpatient f/u for PFTs and formal diagnosis - Titrate oxygen to maintain sats >90% - Start Dulera, Spiriva, albuterol (6) GERD (gastroesophageal reflux disease) Comment: - Continue pantoprazole (7) Hypertension Comment: - Normotensive, SBP 110s - Hold losartan - Continue metoprolol (8) Paroxysmal atrial fibrillation Comment: - With RVR - Hold warfarin - Continue metoprolol and give additional metoprolol this AM (9) DVT prophylaxis Comment: - Heparin SQ (10) Full code status Comment: Status and Disposition: Inpatient. Anticipate d/c home vs RAFAEL when medically stable and cleared by Ortho.
[2018-10-21] MEDS ORDERED: Furosemide IV* 10 MG/ML VIAL (40 MG) IV ONE (08:21)
[2018-10-21] MEDS ORDERED: Norepinephrine VIAL* 1 MG/ML 4 ML VIAL ONE (08:27)
[2018-10-21] MEDS ORDERED: Phenylephrine 40 MCG/ML SYRINGE ONE (08:27)
[2018-10-21] MEDS ORDERED: Lidocaine 2% PF * 5 ML VIAL ONE (08:27)
--- NOTE | 2018-10-21 09:48 | PN ---
Progress Note - Progress Note Date of Service: 10/21/18 SOAP: Subjective: Pt. is alert, denies sob/cp. Overnight O2 desat to 80's, now on 6L o2 has sat of 89. Objective: Vital Signs: Temp Pulse Resp BP Pulse Ox 97.7 F 55 20 137/80 91 10/21/18 07:30 10/21/18 07:30 10/21/18 09:12 10/21/18 07:30 10/21/18 07:30 Laboratory Results - last 24 hr 10/20/18 10/21/18 10/21/18 10:09 06:28 06:28 WBC 9.0 RBC 4.36 Hgb 12.6 Hct 38 MCV 86 MCH 29 MCHC 34 RDW 15 Plt Count 245 MPV 8.0 Neut % (Auto) 66.9 Lymph % (Auto) 18.9 [place] % (Auto) 7.5 Eos % (Auto) 5.7 Baso % (Auto) 1.0 Absolute Neuts (auto) 6.0 Absolute Lymphs (auto) 1.7 Absolute Monos (auto) 0.7 Absolute Eos (auto) 0.5 Absolute Basos (auto) 0.1 Absolute Nucleated RBC 0 Nucleated RBC % 0 INR (Anticoag Therapy) 1.09 H Sodium Potassium Chloride Carbon Dioxide Anion Gap BUN Creatinine Est GFR ( Amer) Est GFR (Non-Af Amer) BUN/Creatinine Ratio Glucose Calcium Magnesium 1.9 Troponin I 0.05 H* 10/21/18 06:28 WBC RBC Hgb Hct MCV MCH MCHC RDW Plt Count MPV Neut % (Auto) Lymph % (Auto) [place] % (Auto) Eos % (Auto) Baso % (Auto) Absolute Neuts (auto) Absolute Lymphs (auto) Absolute Monos (auto) Absolute Eos (auto) Absolute Basos (auto) Absolute Nucleated RBC Nucleated RBC % INR (Anticoag Therapy) Sodium 137 Potassium 3.7 Chloride 105 Carbon Dioxide 27 Anion Gap 5 BUN 15 Creatinine 0.58 Est GFR ( Amer) 121.7 Est GFR (Non-Af Amer) 100.5 BUN/Creatinine Ratio 25.9 H Glucose 95 Calcium 8.3 L Magnesium Troponin I LLE - distally nvi. pain/ttp L hip. Assessment: 78 yo female s/p fall with L femoral neck fracture. Plan is LTHA but patient has had afib, desaturations and pulmonary edema, fever and UTI. Plan: bedrest. hospitalist group recommended holding surgery today, will diurese and work on O2 requirements. pt. will remain on telemetry. plan 8am surgery 10/22. npo after midnight.
--- NOTE | 2018-10-21 11:44 | PN ---
Progress Note - Progress Note Date of Service: 10/21/18 Note: Anesthesia, Patient came down for her left hip fracture this AM, over night she was transfered to telemetry. She feels, and looks well, CXR seemed improved, but her oxygen saturation ran between 89-91 on 6 liters of O2. Santa Talbert evaluated the patient and felt further diuresis needed. So surgery will be held. I discussed with the patient and her daughter about doing the operation tomorrow. I think by then we will have to proceed if she's doing the same, as complications from her fracture will only increase with time. They understand. Given her medical issues, ICU postoperatively.
[2018-10-21] MEDS: cefTRIAXone(*) 1 GM in NS 0.9% 50 ML* 50 ML IVPB SCH (21:27)
[2018-10-22] MEDS: Morphine 4 MG/ML VIAL (1 ml) 4 MG/ML VIAL IV PRN (04:39)
[2018-10-22 05:37] LABS: BUN/Creatinine Ratio 27.4 (8-20); Calcium 8.4 mg/dL (8.6-10.3); EGFR African American 112.6 (>60); EGFR Non-African American 93.1 (>60); Potassium 3.7 mmol/L (3.5-5.0)
[2018-10-22] MEDS: oxyCODONE/Acetamin 5/325 MG* TAB PO PRN ×2 (06:55→20:31)
[2018-10-22] MEDS ORDERED: KETAMINE HCL* 50 MG/ML 10 ML VIAL ONE (07:15)
[2018-10-22] MEDS ORDERED: Midazolam* 1 MG/ML 5 ML VIAL (5 MG) ONE (07:15)
[2018-10-22] MEDS ORDERED: fentaNYL* 50 MCG/ML 2 ML VIAL (100 MCG VIAL) ONE (07:15)
[2018-10-22] MEDS: Mometasone/Formoter 200/5 MDI INH SCH ×2 (08:01→20:14)
[2018-10-22] MEDS: Tiotropium CAP.INH* CAP.INH/18 MCG (USE ORDER SET !) INH SCH (08:02)
[2018-10-22] MEDS ORDERED: Clindamycin 900 MG/D5W BAG(*) 900 MG/50 ML BAG IVPB ONE (08:07)
--- NOTE | 2018-10-22 08:18 | PN ---
Subjective Date of Service: 10/22/18 Interval History: Ms. Saab reports feeling well. She has no pain post-operatively. She denies chest pain or SOB. Family History: Unchanged from Admission Social History: Unchanged from Admission Past Medical History: Unchanged from Admission Objective Active Medications: Acetaminophen (Tylenol Tab*) 650 mg PO Q4H PRN Al Hydrox/Mg Hydrox/Simethicone (Maalox Plus*) 30 ml PO Q6H PRN Albuterol (Ventolin 2.5 Mg/3 Ml Neb.Jenna*) 2.5 mg INH Q4H PRN Device (Tiotropium Inhaler Device*) 1 each INH .USE w/ SPIRIVA CAPS HOLDEN Docusate Sodium (Colace Cap*) 100 mg PO 0900,2100 HOLDEN Ceftriaxone Sodium 1 gm/ (Sodium Chloride) 50 mls @ 200 mls/hr IVPB Q24H HOLDEN Metoprolol Succinate (Toprol Xl Tab*) 25 mg PO 0900 [facility] Metoprolol Tartrate (Lopressor Iv*) 5 mg IV Q6H PRN Mometasone Furoate/Formoterol Fumar (Dulera 200/5 Mdi*) 2 puff INH 0900,2100 HOLDEN Morphine Sulfate (Morphine 4 Mg/Ml Vial (1 Ml)) 2 mg IV Q4H PRN Ondansetron HCl (Zofran Inj*) 4 mg IV Q4H PRN Oxycodone/Acetaminophen (Percocet 5/325 Tab*) 1 tab PO Q4H PRN Pantoprazole Sodium (Protonix Tab*) 40 mg PO 0900 HOLDEN Senna (Senokot Tab*) 1 tab PO 0900,2100 HOLDEN Tiotropium [place] (Spiriva Cap.Inh*) 1 cap INH 0900 [facility] Vital Signs: Temp Pulse Resp BP Pulse Ox 97.8 F 69 20 109/94 93 10/22/18 07:31 10/22/18 07:31 10/22/18 08:00 10/22/18 07:31 10/22/18 07:31 Oxygen Devices in Use Now: Nasal Cannula Appearance: Female lying in bed in NAD Eyes: No Scleral Icterus Ears/Nose/Mouth/Throat: Mucous Membranes Moist Neck: Trachea Midline Respiratory: Symmetrical Chest Expansion and Respiratory Effort, Clear to Auscultation Cardiovascular: NL Sounds; No Murmurs; No JVD, No Edema Abdominal: NL Sounds; No Tenderness; No Distention Extremities: No Edema Skin: No Rash or Ulcers Neurological: Alert and Oriented x 3, NL Muscle Strength and Tone Nutrition: Taking PO's Result Diagrams: 10/21/18 06:28 10/22/18 04:59 Additional Lab and Data: . Microbiology and Other Data: . Assess/Plan/Problems-Billing Assessment: Ms. Saab is a 78 yo F with PMH of paroxsymal afib, dCHF, HTN, and GERD; who presented to the ED after a mechanical fall with subsequent hip pain and was found to have a left femoral neck fracture. Developed sepsis criteria on 10/19 with fever, tachycardia, and leukocytosis - thought to be secondary to UTI but cultures negative, question if related to atlectasis or viral process. Then developed acute on chronic diastolic CHF secondary to IVF for sepsis and COPD, now resolved. - Patient Problems (1) Fracture of femoral neck, left Comment: - POD # 0 - Secondary to mechanical fall. Xray shows nondisplaced fracture - Patient now on 4L NC, had fluid overload after being given IVF appropriately for suspected sepsis from UTI, now s/p diuresis. However, will need close monitoring of fluid status. (2) Sepsis Comment: - Resolved - Code sepsis for fever, tachycardia, tachypnea, leukocytosis on 10/19. - Suspected source was UTI, though cultures are negative, cxray negative, ? viral syndrome, ? atelectasis - Blood cultures with no growth to date - Stop ceftriaxone (3) UTI (urinary tract infection) Comment: - Based on UA; urine culture negative - Stop ceftriaxone (4) Chronic diastolic congestive heart failure Comment: - Appears euvolemic but needs close monitoring of fluid status - TTE with EF 50-55% and no significant valvular or wall motion abnormalities - Continue metoprolol (5) COPD (chronic obstructive pulmonary disease) Comment: - No history of COPD, but CTA shows changes consistent with emphysema and smoking history is consistent with diagnosis - Currently requiring 4L oxygen - Will need outpatient f/u for PFTs and formal diagnosis - Titrate oxygen to maintain sats >90% - Start Dulera, Spiriva, albuterol (6) GERD (gastroesophageal reflux disease) Comment: - Continue pantoprazole (7) Hypertension Comment: - Normotensive, SBP 110s - Hold losartan - Continue metoprolol (8) Paroxysmal atrial fibrillation Comment: - With RVR - Hold warfarin - Continue metoprolol and give additional metoprolol this AM (9) DVT prophylaxis Comment: - Heparin SQ (10) Full code status Comment: Status and Disposition: Inpatient. Anticipate d/c home vs RAFAEL when medically stable and cleared by Ortho.
[2018-10-22] MEDS ORDERED: Atracurium* 10 MG/ML 10 ML VIAL ONE (08:24)
[2018-10-22] MEDS: Metoprolol Succinate XL TAB* 25 MG PO SCH (09:19)
[2018-10-22] MEDS: Pantoprazole TAB * 40 MG TAB PO SCH (09:19)
[2018-10-22] MEDS: Docusate CAP* 100 MG PO SCH ×2 (09:19→20:31)
[2018-10-22] MEDS: Senna TAB PO SCH ×2 (09:19→20:31)
[2018-10-22] MEDS ORDERED: Phenylephrine 10 MG/ML VIAL* 1 ML VIAL ONE (09:53)
[2018-10-22] MEDS ORDERED: Norepinephrine VIAL* 1 MG/ML 4 ML VIAL ONE (09:53)
[2018-10-22] MEDS ORDERED: Dexamethasone IV* 4 MG/ML 1 ML (4 MG) ONE (09:54)
[2018-10-22] MEDS ORDERED: Ondansetron INJ* 2 MG/ML VIAL ONE (09:54)
[2018-10-22] MEDS ORDERED: Propofol* 10 MG/ML 20 ML BTL ONE (09:54)
[2018-10-22] MEDS ORDERED: Furosemide IV* 10 MG/ML 2 ML VIAL (20 MG) ONE (09:55)
[2018-10-22] MEDS ORDERED: Metoprolol Tartrate IV* 1 MG/ML 5 ML VIAL ONE (09:55)
[2018-10-22] MEDS ORDERED: Morphine 10 MG/ML VIAL (1 ml) ONE (09:56)
[2018-10-22] MEDS ORDERED: Bupivacaine 0.5%* 50 ML VIAL ONE (10:02)
[2018-10-22] MEDS ORDERED: Neostigmine Methylsulfate* 1 MG/ML 10 ML VIAL (1 mg/ml) ONE (10:11)
[2018-10-22] MEDS ORDERED: Glycopyrrolate IV* 0.2 MG/ML 1 ML VIAL ONE (10:11)
[2018-10-22] MEDS ORDERED: DiMENhydriNATE IV* 50 MG/ML VIAL IV PUSH PRN (10:40)
[2018-10-22] MEDS ORDERED: fentaNYL* 50 MCG/ML 2 ML VIAL (100 MCG VIAL) IV PRN (10:40)
[2018-10-22] MEDS ORDERED: Morphine 4 MG/ML VIAL (1 ml) 4 MG/ML VIAL IV PRN (10:40)
[2018-10-22] MEDS ORDERED: PROCHLORPERAZINE INJ 5 MG/ML 2 ML VIAL IV PRN (10:40)
[2018-10-22] MEDS ORDERED: Naloxone* 0.4 MG/ML 1 ML VIAL IV PRN (10:40)
[2018-10-22] MEDS ORDERED: PROCHLORPERAZINE INJ 5 MG/ML 2 ML VIAL ONE (11:01)
[2018-10-22] MEDS ORDERED: NS 0.9% 1000 ML** 1,000 ML IV SCH ×2 (12:30→13:45)
[2018-10-22] MEDS: Metoprolol Tartrate IV* 1 MG/ML 5 ML VIAL IV PRN (12:51)
--- NOTE | 2018-10-22 23:32 | OP ---
DATE OF OPERATION: 10/22/18 - ROOM #ICU-03 DATE OF : 40 ATTENDING SURGEON: Tania Hyde MD SECONDARY ENGLISH TEACHER: KARUNA Renteria. Mr. Bunch did help throughout the procedure with preparation of the leg, wound retraction, manipulation of the hip, and wound closure. ANESTHESIOLOGIST: Dr. Velasco. ANESTHESIA: General. PRE-OP DIAGNOSIS: Left displaced femoral neck fracture with baseline moderate- to- severe degenerative osteoarthritis. POST-OP DIAGNOSIS: Left displaced femoral neck fracture with baseline moderate- to- severe degenerative osteoarthritis. OPERATIVE PROCEDURE: Left total hip arthroplasty. COMPLICATIONS: None. ESTIMATED BLOOD LOSS: 250 cc. SPECIMEN: Femoral head and acetabular reaming sent to Pathology. HARDWARE USED: This is Gigi uncemented total hip arthroplasty hardware. For the cup, a Trident PSL 46D with a single 20 mm screw. For the the liner, a Trident X3, 0 degree liner 36D. For the stem, an Accolade II size 4 with a 127- degree neck angle. For the head, a 36, -5 Biolox delta ceramic V40 femoral head. BRIEF HISTORY/INDICATION: Ms. Saab is a 78-year-old female who had a fall landing on her left side. She was brought to [facility] and diagnosed with the displaced comminuted femoral neck fracture in the left. Radiographs indicated significant baseline arthritis. The appropriate standard of care for the patient was a total hip arthroplasty and she was offered this. Unfortunately surgery was delayed by three or more days because of multiple medical problems including atrial fibrillation, febrile episodes, and pulmonary edema. By 10/22/18, she was medically optimized and the hospitalist group thought that we should proceed with surgery. The patient and her family wished to proceed. Informed consent was obtained from the patient and her family. They understood the risks of surgery included but were not limited to, bleeding , infection, damage to nearby structures, continued pain, need for further surgery, intraoperative fracture, nerve palsy, hardware failure or loosening, dislocation, leg length discrepancy, stroke, heart attack, blood clot, and . They wished to proceed. INTRAOPERATIVE FINDINGS: Intraoperatively, the patient had a displaced comminuted femoral neck fracture. She had extensive loss of cartilage of the acetabulum and femoral head with significant osteophytes around the acetabular rim. She was noted to have osteoporosis throughout the procedure. DESCRIPTION OF PROCEDURE: Ms. Saab was identified in the preanesthesia unit. Her left lower extremity was marked as the correct operative side. Informed consent was signed and placed in the chart. The patient was taken to the operating room and placed under general anesthesia. A Siegel catheter had already been placed. She was placed in the right lateral decubitus position on the peg board. All bony prominences were well padded. Left lower extremity was prepped and draped in the usual sterile fashion. Preop time-out was made to correctly identify the patient, side, and site. Appropriate perioperative antibiotics were given within 1 hour of incision. A 10 cm posterior hip incision was made with a 10 blade and carried down to the lateral fascial layer. Lateral fascial layer was incised in line with the skin incision. Charnley retractor was placed. The piriformis and conjoint tendons were elevated off the posterolateral femur and tagged with #5 Ethibond. Next, the capsular flap was made with electrocautery and tagged with #5 Ethibond. The fracture hematoma was suctioned. Femoral neck fracture was easily visualized. The bony fragments were carefully removed with the rongeur. Femoral neck was presented and a femoral neck clean up cut was made with an oscillating saw. The femur was retracted anteriorly. The femoral head was carefully removed and measured at 45 mm. After appropriate placement of retractor, the acetabulum was well visualized. There was extensive loss of cartilage and osteophyte formation. A long-handled knife was used to sharply remove any remaining labrum from the acetabular rim. The acetabulum was sequentially reamed up to a size 45 up to size 46. A 46 reamer had excellent fit and stability. The trial was placed and had excellent fit. Final implant chosen was a Trident PSL 46D. This was impacted into the acetabulum without difficulty. The cup was stable with appropriate anteversion and abduction angle. The 20 mm screw was placed in the superoposterior quadrant for extra stability. A Trident X3 0 degree liner 36D was chosen. This was impacted into the acetabulum without difficulty. Stability of the liner was checked and rechecked and noted to be stable. Next, preparation of the femoral canal was attended too. A canal finder was used to enter the proximal femur. The femur was sequentially broached up to a size 4. Size 4 broach had excellent fit and stability with appropriate anteversion. A 127 neck trial was chosen with a 36- head trial. The hip was reduced and taken through a range of motion. The hip was stable in all positions. There was good soft tissue tension and appropriate leg lengths. The hip was dislocated. All trials were removed. Final implant chosen was an Accolade II size 4 with a 127 degree neck. This was impacted into the acetabulum without difficulty. The stem was stable with appropriate anteversion. A Biolox delta ceramic V40 femoral head 36 -5 was chosen. This was impacted onto the femoral neck. The hip was reduced and taken through a range of motion. The hip was stable in all positions. There was good soft tissue tension and appropriate leg lengths. The hip was copiously irrigated with sterile saline. Previously tagged tendons and capsule were reapproximated to the posterolateral femur through trochanteric drill holes. The hip was once again copiously irrigated with sterile saline. The lateral fascial layer was closed using interrupted #1 Vicryls. The rest of the incision was closed in a layered fashion using 0 and 2-0 Vicryls. Skin was closed using running 4-0 Monocryl with Dermabond. Sterile Adaptic, 4x4s, and paper tape were used to cover the incision. The patient's anesthesia was reversed without difficulty. She was taken to the PACU in stable condition. Intended weightbearing will be weightbearing as tolerated. Intended DVT prophylaxis will be Eliquis. The patient will be taken to the ICU for observation due to recent oxygen desaturation and pulmonary edema as well as atrial fibrillation. [id number]/[facility] #: [id number] ANNETTE
[2018-10-23] MEDS: Apixaban* 2.5 MG TAB PO SCH ×2 (06:00→17:36)
--- NOTE | 2018-10-23 08:16 | PN ---
Subjective Date of Service: 10/23/18 Interval History: Patient seen and examined. Feeling well, denies chest pain, no SOB, no palpitations. Denies fever or chills. Daughter at bedside. Family History: Unchanged from Admission Social History: Unchanged from Admission Past Medical History: Unchanged from Admission Objective Active Medications: Acetaminophen (Tylenol Tab*) 650 mg PO Q4H PRN PRN Reason: FEVER/PAIN Last Admin: 10/19/18 20:02 Dose: 650 mg Al Hydrox/Mg Hydrox/Simethicone (Maalox Plus*) 30 ml PO Q6H PRN PRN Reason: INDIGESTION Albuterol (Ventolin 2.5 Mg/3 Ml Neb.Jenna*) 2.5 mg INH Q4H PRN PRN Reason: SOB/WHEEZING Apixaban (Eliquis*) 2.5 mg PO Q12H HOLDEN Device (Tiotropium Inhaler Device*) 1 each INH .USE w/ SPIRIVA CAPS HOLDEN Docusate Sodium (Colace Cap*) 100 mg PO 0900,2100 [facility] Last Admin: 10/22/18 20:31 Dose: 100 mg Metoprolol Succinate (Toprol Xl Tab*) 25 mg PO 0900 HOLDEN Last Admin: 10/22/18 09:19 Dose: Not Given Metoprolol Tartrate (Lopressor Iv*) 5 mg IV Q6H PRN PRN Reason: HEART RATE/PULSE Last Admin: 10/22/18 12:51 Dose: 5 mg Mometasone Furoate/Formoterol Fumar (Dulera 200/5 Mdi*) 2 puff INH 0900,2100 HOLDEN Last Admin: 10/22/18 20:14 Dose: 2 puff Morphine Sulfate (Morphine 4 Mg/Ml Vial (1 Ml)) 2 mg IV Q4H PRN PRN Reason: PAIN - MILD Last Admin: 10/22/18 04:39 Dose: 2 mg Ondansetron HCl (Zofran Inj*) 4 mg IV Q4H PRN PRN Reason: NAUSEA/VOMITING Last Admin: 10/22/18 12:39 Dose: 4 mg Oxycodone/Acetaminophen (Percocet 5/325 Tab*) 1 tab PO Q4H PRN PRN Reason: Pain Last Admin: 10/22/18 20:31 Dose: 1 tab Pantoprazole Sodium (Protonix Tab*) 40 mg PO 0900 [facility] Last Admin: 10/22/18 09:19 Dose: Not Given Senna (Senokot Tab*) 1 tab PO 0900,2100 [facility] Last Admin: 10/22/18 20:31 Dose: 1 tab Tiotropium [place] (Spiriva Cap.Inh*) 1 cap INH 09 [facility] Last Admin: 10/22/18 08:02 Dose: Not Given Vital Signs - 8 hr 10/23/18 10/23/18 10/23/18 00:16 00:20 00:25 Temperature Pulse Rate 103 91 90 Respiratory 16 17 16 Rate Blood Pressure (mmHg) O2 Sat by Pulse 96 95 96 Oximetry 10/23/18 10/23/18 10/23/18 00:30 00:31 00:35 Temperature Pulse Rate 99 103 95 Respiratory 16 17 16 Rate Blood Pressure 109/56 (mmHg) O2 Sat by Pulse 95 96 95 Oximetry 10/23/18 10/23/18 10/23/18 00:40 00:46 00:50 Temperature Pulse Rate 98 103 96 Respiratory 17 17 16 Rate Blood Pressure (mmHg) O2 Sat by Pulse 95 96 95 Oximetry 10/23/18 10/23/18 10/23/18 00:55 01:00 01:01 Temperature Pulse Rate 97 110 97 Respiratory 16 17 16 Rate Blood Pressure 108/68 (mmHg) O2 Sat by Pulse 97 96 96 Oximetry 10/23/18 10/23/18 10/23/18 01:05 01:10 01:16 Temperature Pulse Rate 94 101 100 Respiratory 17 16 16 Rate Blood Pressure (mmHg) O2 Sat by Pulse 96 96 96 Oximetry 10/23/18 10/23/18 10/23/18 01:20 01:25 01:30 Temperature Pulse Rate 98 96 93 Respiratory 16 17 17 Rate Blood Pressure 97/70 (mmHg) O2 Sat by Pulse 96 96 97 Oximetry 10/23/18 10/23/18 10/23/18 01:31 01:35 01:40 Temperature Pulse Rate 99 98 114 Respiratory 17 16 21 Rate Blood Pressure (mmHg) O2 Sat by Pulse 97 96 94 Oximetry 10/23/18 10/23/18 10/23/18 01:46 01:50 01:55 Temperature Pulse Rate 120 133 120 Respiratory 17 20 19 Rate Blood Pressure (mmHg) O2 Sat by Pulse 93 94 95 Oximetry 10/23/18 10/23/1810/23/19 02:00 02:01 02:05 Temperature Pulse Rate 122 120 121 Respiratory 18 19 20 Rate Blood Pressure 113/86 (mmHg) O2 Sat by Pulse 92 94 94 Oximetry 10/23/18 10/23/18 10/23/18 02:11 02:16 02:20 Temperature Pulse Rate 104 113 116 Respiratory 19 17 15 Rate Blood Pressure (mmHg) O2 Sat by Pulse 94 94 92 Oximetry 10/23/18 10/23/18 10/23/18 02:26 02:30 02:31 Temperature Pulse Rate 109 97 112 Respiratory 19 15 18 Rate Blood Pressure 108/65 (mmHg) O2 Sat by Pulse 94 94 95 Oximetry 10/23/18 10/23/18 10/23/18 02:35 02:41 02:45 Temperature Pulse Rate 108 102 104 Respiratory 21 19 19 Rate Blood Pressure (mmHg) O2 Sat by Pulse 95 94 97 Oximetry 10/23/18 10/23/18 10/23/18 02:50 02:56 03:00 Temperature Pulse Rate 115 101 106 Respiratory 18 23 16 Rate Blood Pressure (mmHg) O2 Sat by Pulse 96 96 94 Oximetry 10/23/18 10/23/18 10/23/18 03:01 03:05 03:11 Temperature Pulse Rate 108 105 100 Respiratory 19 18 17 Rate Blood Pressure 98/81 (mmHg) O2 Sat by Pulse 96 94 96 Oximetry 10/23/18 10/23/18 10/23/18 03:15 03:20 03:26 Temperature Pulse Rate 109 99 106 Respiratory 18 18 16 Rate Blood Pressure (mmHg) O2 Sat by Pulse 96 96 97 Oximetry 10/23/18 10/23/18 10/23/18 03:30 03:35 03:41 Temperature Pulse Rate 105 112 101 Respiratory 16 17 17 Rate Blood Pressure 107/68 (mmHg) O2 Sat by Pulse 97 97 97 Oximetry 10/23/18 10/23/18 10/23/18 03:45 03:50 03:56 Temperature Pulse Rate 108 93 98 Respiratory 17 16 19 Rate Blood Pressure (mmHg) O2 Sat by Pulse 96 97 98 Oximetry 10/23/18 10/23/18 10/23/18 04:00 04:05 04:11 Temperature 99.2 F Pulse Rate 98 103 108 Respiratory 19 17 17 Rate Blood Pressure 105/62 (mmHg) O2 Sat by Pulse 97 97 97 Oximetry 10/23/18 10/23/18 10/23/18 04:15 04:20 04:26 Temperature Pulse Rate 100 96 104 Respiratory 17 16 17 Rate Blood Pressure (mmHg) O2 Sat by Pulse 98 98 97 Oximetry 10/23/18 10/23/18 10/23/18 04:30 04:35 04:41 Temperature Pulse Rate 99 91 93 Respiratory 16 17 18 Rate Blood Pressure 102/67 (mmHg) O2 Sat by Pulse 97 97 97 Oximetry 10/23/18 10/23/18 10/23/18 04:45 04:51 04:55 Temperature Pulse Rate 98 94 103 Respiratory 17 18 20 Rate Blood Pressure (mmHg) O2 Sat by Pulse 97 98 97 Oximetry 10/23/18 10/23/18 10/23/18 05:00 05:06 05:10 Temperature Pulse Rate 98 93 96 Respiratory 20 18 18 Rate Blood Pressure 105/74 (mmHg) O2 Sat by Pulse 98 97 97 Oximetry 10/23/18 10/23/18 10/23/18 05:15 05:21 05:25 Temperature Pulse Rate 107 123 118 Respiratory 20 15 22 Rate Blood Pressure (mmHg) O2 Sat by Pulse 97 97 90 Oximetry 10/23/18 10/23/18 10/23/18 05:30 05:31 05:36 Temperature Pulse Rate 119 108 124 Respiratory 20 20 16 Rate Blood Pressure 115/59 (mmHg) O2 Sat by Pulse 93 95 93 Oximetry 10/23/18 10/23/18 10/23/18 05:40 05:45 05:51 Temperature Pulse Rate 111 112 103 Respiratory 18 19 18 Rate Blood Pressure (mmHg) O2 Sat by Pulse 95 92 95 Oximetry 10/23/18 10/23/18 10/23/18 05:55 06:00 06:02 Temperature Pulse Rate 99 93 99 Respiratory 18 19 18 Rate Blood Pressure 106/60 (mmHg) O2 Sat by Pulse 95 95 95 Oximetry 10/23/18 10/23/18 10/23/18 06:06 06:10 06:15 Temperature Pulse Rate 108 105 100 Respiratory 17 17 17 Rate Blood Pressure (mmHg) O2 Sat by Pulse 95 95 96 Oximetry 10/23/18 10/23/18 06:21 06:25 Temperature Pulse Rate 107 93 Respiratory 17 17 Rate Blood Pressure (mmHg) O2 Sat by Pulse 96 96 Oximetry Oxygen Devices in Use Now: Nasal Cannula Appearance: alert, well appearing NAD Eyes: PERRLA Ears/Nose/Mouth/Throat: NL Teeth, Lips, Gums Neck: NL Appearance and Movements; NL JVP, Trachea Midline Respiratory: Symmetrical Chest Expansion and Respiratory Effort, Clear to Auscultation Cardiovascular: NL Sounds; No Murmurs; No JVD, No Edema, - - afib, irregular with tachycardia Abdominal: NL Sounds; No Tenderness; No Distention, No Hepatosplenomegaly Skin: No Rash or Ulcers, - - dressing CDI Neurological: Alert and Oriented x 3 Nutrition: Taking PO's Result Diagrams: 10/21/18 06:28 10/22/18 04:59 Additional Lab and Data: . Microbiology and Other Data: . Assess/Plan/Problems-Billing Assessment: Ms. Saab is a 78 yo F with PMH of paroxsymal afib, dCHF, HTN, and GERD; who presented to the ED after a mechanical fall with subsequent hip pain and was found to have a left femoral neck fracture. Developed sepsis criteria on 10/19 with fever, tachycardia, and leukocytosis - thought to be secondary to UTI but cultures negative, question if related to atlectasis or viral process. Then developed acute on chronic diastolic CHF secondary to IVF for sepsis and COPD, now resolved. - Patient Problems (1) Fracture of femoral neck, left Code(s): S72.002A - FRACTURE OF UNSP PART OF NECK OF LEFT FEMUR, INIT SNOMED Code(s): 6469395 Comment: - POD1 - POC as per orthopedics - PT/OT, pain control, eliquis (2) COPD (chronic obstructive pulmonary disease) Code(s): J44.9 - CHRONIC OBSTRUCTIVE PULMONARY DISEASE, UNSPECIFIED SNOMED Code(s): 24811531 Comment: - With post-op hypoxia 2/2 COPD and fluid overload, on 4L oxygen, wean as tolerated, goal sat>90 - Continue Dulera, Spiriva, albuterol (3) Chronic diastolic congestive heart failure Code(s): I50.32 - CHRONIC DIASTOLIC (CONGESTIVE) HEART FAILURE SNOMED Code(s) : 912642917 Comment: - Diuresed, now euvolemic - Continue BB - TTE with EF 50-55% and no significant valvular or wall motion abnormalities (4) GERD (gastroesophageal reflux disease) Code(s): K21.9 - GASTRO-ESOPHAGEAL REFLUX DISEASE WITHOUT ESOPHAGITIS SNOMED Code(s): 013521898 Comment: - Continue pantoprazole (5) Hypertension Code(s): I10 - ESSENTIAL (PRIMARY) HYPERTENSION SNOMED Code(s): 03952686 Comment: - Normotensive, SBP 110s - Hold losartan - Continue metoprolol - DC arterial line (6) Paroxysmal atrial fibrillation Code(s): I48.0 - PAROXYSMAL ATRIAL FIBRILLATION SNOMED Code(s): 672012191 Comment: - RVR last 24 hours in setting of acute injury, surgery and volume status - Hold warfarin, on eliquis post-op - d/w primary RN to give metoprolol dose early and monitor, HR 110's on tele (7) Sepsis Comment: - Code sepsis for fever, tachycardia, tachypnea, leukocytosis on 10/19 - Resolved, likely viral vs COPD exac? (8) UTI (urinary tract infection) Comment: - Resolved/Culture negative, ceftriaxone DCd - DC chawla (9) DVT prophylaxis Code(s): ZYL8275 - SNOMED Code(s): 073096110 Comment: - Eliquis (10) Full code status Code(s): Z78.9 - OTHER SPECIFIED HEALTH STATUS SNOMED Code(s): 237751448 Comment: Status and Disposition: Inpatient, Anticipate d/c home vs RAFAEL when medically stable and cleared by Ortho. Transfer to surgical floor today if HR remains stable.
[2018-10-23] MEDS: Pantoprazole TAB * 40 MG TAB PO SCH (08:25)
[2018-10-23] MEDS: Metoprolol Succinate XL TAB* 25 MG PO SCH (08:25)
[2018-10-23] MEDS: Docusate CAP* 100 MG PO SCH ×2 (08:26→19:30)
[2018-10-23] MEDS: Mometasone/Formoter 200/5 MDI INH SCH ×2 (08:39→21:50)
[2018-10-23] MEDS: Tiotropium CAP.INH* CAP.INH/18 MCG (USE ORDER SET !) INH SCH (08:40)
[2018-10-23] MEDS: Senna TAB PO SCH ×2 (08:48→19:30)
[2018-10-23] MEDS: Metoprolol Tartrate IV* 1 MG/ML 5 ML VIAL IV PRN (08:56)
[2018-10-23 09:23] LABS: Hematocrit 35 % (33-41); Hemoglobin 11.4 g/dL (12.0-16.0); Mean Platelet Volume 7.7 fL (7.4-10.4); Platelet Count 235 10^3/uL (150-450)
[2018-10-23 09:39] LABS: BUN/Creatinine Ratio 32.1 (8-20); Calcium 8.2 mg/dL (8.6-10.3); EGFR Non-African American 111.6 (>60)
[2018-10-23] MEDS: oxyCODONE/Acetamin 5/325 MG* TAB PO PRN ×2 (10:25→16:56)
--- NOTE | 2018-10-23 10:37 | PN ---
Progress Note - Progress Note Date of Service: 10/23/18 SOAP: Subjective: []Pt seen and examined at bedside with her daughter present. She is in good spirits with soreness of her left hip but confirms pain decreased since surgery. Denies CP, SOB, dizziness or nausea. Anticipates being moved to the floor from the ICU today. Objective: []General: Well appearing, NAD, good spirits. LLE: Abductor pillow in place, left hip dressing CDI, thigh is soft, df/pf intact, dp2+, sensation intact to light touch distally Calves supple and nontender without erythema, edema or palpable cords Assessment: []L total hip arthroplasty 10/22 Dr Hyde Plan: []WBAT posterior hip precautions eliquis 2.5 mg po BID for dvt prophylaxis First dressing change tomorrow, then dry dressing changes daily Vital Signs Temp 98.9 F 10/23/18 08:00 Pulse 105 10/23/18 09:40 Resp 25 10/23/18 10:25 BP 94/63 10/23/18 09:30 Pulse Ox 96 10/23/18 09:40 Intake & Output 10/22/18 10/23/18 10/23/18 18:59 06:59 18:59 Intake Total 690 1119 Output Total 1100 705 200 Balance -410 414 -200 Weight 133 lb Intake: IV Fluids 450 559 CLINDAMYCIN 900 MG 50 LR 400 NS 559 Oral 240 560 Output: Urine 515 Siegel 850 190 200 Estimated Blood Loss 250 Laboratory Last Values WBC 9.0 10^3/uL (3.5-10.8) 10/21/18 06:28 RBC 4.36 10^6 /uL (3.70-4.87) 10/21/18 06:28 Hgb 11.4 g/dL (12.0-16.0) L 10/23/18 09:11 Hct 35 % (33-41) 10/23/18 09:11 MCV 86 fL (80-97) 10/21/18 06:28 MCH 29 pg (27-31) 10/21/18 06:28 MCHC 34 g/dL (31-36) 10/21/18 06:28 RDW 15 % (10.5-15) 10/21/18 06:28 Plt Count 235 10^3/uL (150-450) 10/23/18 09:11 MPV 7.7 fL (7.4-10.4) 10/23/18 09:11 Neut % (Auto) 66.9 % 10/21/18 06:28 Lymph % (Auto) 18.9 % 10/21/18 06:28 [place] % (Auto) 7.5 % 10/21/18 06:28 Eos % (Auto) 5.7 % 10/21/18 06:28 Baso % (Auto) 1.0 % 10/21/18 06:28 Absolute Neuts (auto) 6.0 10^3/ul (1.5-7.7) 10/21/18 06:28 Absolute Lymphs (auto) 1.7 10^3/ul (1.0-4.8) 10/21/18 06:28 Absolute Monos (auto) 0.7 10^3/ul (0-0.8) 10/21/18 06:28 Absolute Eos (auto) 0.5 10^3/ul (0-0.6) 10/21/18 06:28 Absolute Basos (auto) 0.1 10^3/ul (0-0.2) 10/21/18 06:28 Absolute Nucleated RBC 0 10^3/ul 10/21/18 06:28 Nucleated RBC % 0 10/21/18 06:28 INR (Anticoag Therapy) 1.09 (0.77-1.02) H 10/21/18 06:28 APTT 25.5 seconds (26.0-36.3) L 10/18/18 18:01 Sodium 138 mmol/L (135-145) 10/23/18 09:11 Potassium 4.0 mmol/L (3.5-5.0) 10/23/18 09:11 Chloride 105 mmol/L (101-111) 10/23/18 09:11 Carbon Dioxide 27 mmol/L (22-32) 10/23/18 09:11 Anion Gap 6 mmol/L (2-11) 10/23/18 09:11 BUN 17 mg/dL (6-24) 10/23/18 09:11 Creatinine 0.53 mg/dL (0.51-0.95) 10/23/18 09:11 Est GFR ( Amer) 135.0 (>60) 10/23/18 09:11 Est GFR (Non-Af Amer) 111.6 (>60) 10/23/18 09:11 BUN/Creatinine Ratio 32.1 (8-20) H 10/23/18 09:11 Glucose 111 mg/dL (70-100) H 10/23/18 09:11 Lactic Acid 1.0 mmol/L (0.5-2.0) 10/19/18 21:16 Calcium 8.2 mg/dL (8.6-10.3) L 10/23/18 09:11 Magnesium 1.9 mg/dL (1.9-2.7) 10/20/18 10:09 Total Bilirubin 0.70 mg/dL (0.2-1.0) 10/18/18 18:01 AST 16 U/L (13-39) 10/18/18 18:01 ALT 14 U/L (7-52) 10/18/18 18:01 Alkaline Phosphatase 59 U/L (34-104) 10/18/18 18:01 Troponin I 0.05 ng/mL (<0.04) H* 10/20/18 10:09 Total Protein 6.2 g/dL (6.4-8.9) L 10/18/18 18:01 Albumin 4.1 g/dL (3.2-5.2) 10/18/18 18:01 Globulin 2.1 g/dL (2-4) 10/18/18 18:01 Albumin/Globulin Ratio 2.0 (1-3) 10/18/18 18:01 Urine Color Yellow 10/19/18 21: Urine Appearance Cloudy 10/19/18 21: Urine pH 5.0 (5-9) 10/19/18 21: Ur Specific [place] 1.027 (1.010-1.030) 10/19/18 21: Urine Protein 2+(100 mg/dl) (Negative) A 10/19/18 21: Urine Ketones 2+ (Negative) A 10/19/18 21: Urine Blood 3+ (Negative) A 10/19/18 21: Urine Nitrate Negative (Negative) 10/19/18 21: Urine Bilirubin Negative (Negative) 10/19/18 21: Urine Urobilinogen Negative (Negative) 10/19/18 21:28 Ur Leukocyte Esterase Trace (Negative) A 10/19/18 21:28 Urine WBC (Auto) 2+(11-20/hpf) (Absent) A 10/19/18 21:28 Urine RBC (Auto) 3+(>10/hpf) (Absent) A 10/19/18 21:28 Ur Squamous Epith Cells Present (Absent) A 10/19/18 21:28 Urine Bacteria 1+ (Absent) A 10/19/18 21:28 Urine Glucose 1+(50 mg/dl) (Negative) A 10/19/18 21:28 Influenza A (Rapid) Negative (Negative) 10/20/18 00:03 Influenza B (Rapid) Negative (Negative) 10/20/18 00:03 Blood Type B Positive 10/18/18 18:01 Antibody Screen Negative 10/18/18 18:01
[2018-10-23] MEDS: Morphine 4 MG/ML VIAL (1 ml) 4 MG/ML VIAL IV PRN (13:39)
[2018-10-23] MEDS: Acetaminophen TAB* 325 MG PO PRN ×2 (13:40→17:45)
[2018-10-23] MEDS ORDERED: NS 0.9% 1000 ML** 1,000 ML IV ONE (14:44)
[2018-10-24] MEDS: oxyCODONE/Acetamin 5/325 MG* TAB PO PRN ×2 (00:20→05:27)
[2018-10-24] MEDS: Acetaminophen TAB* 325 MG PO PRN ×2 (03:26→08:55)
[2018-10-24] MEDS: Apixaban* 2.5 MG TAB PO SCH ×2 (05:28→18:15)
[2018-10-24 05:41] LABS: Hematocrit 32 % (33-41); Hemoglobin 10.7 g/dL (12.0-16.0); Platelet Count 220 10^3/uL (150-450)
[2018-10-24] MEDS: NS 0.9% 1000 ML** 1,000 ML IV SCH (08:52)
[2018-10-24] MEDS: Mometasone/Formoter 200/5 MDI INH SCH ×2 (08:57→20:00)
[2018-10-24] MEDS: Docusate CAP* 100 MG PO SCH ×2 (08:57→19:25)
[2018-10-24] MEDS: Metoprolol Succinate XL TAB* 25 MG PO SCH (08:57)
[2018-10-24] MEDS: Pantoprazole TAB * 40 MG TAB PO SCH (08:58)
[2018-10-24] MEDS: Senna TAB PO SCH ×2 (08:58→19:25)
--- NOTE | 2018-10-24 09:00 | PN ---
Progress Note - Progress Note Date of Service: 10/24/18 SOAP: Subjective: Pt seen and examined at bedside. She is in good spirits with soreness of her left hip but confirms pain decreased since surgery. Denies CP, SOB, dizziness or nausea. Anticipates being moved to rehab at [facility] tomorrow. Objective: []General: Well appearing, NAD, good spirits. LLE: Left hip dressing CDI, thigh is soft, df/pf intact, dp2+, sensation intact to light touch distally Calves supple and nontender without erythema, edema or palpable cords Vital Signs Temp 97.4 F 10/24/18 07:53 Pulse 62 10/24/18 07:53 Resp 16 10/24/18 07:53 BP 111/73 10/24/18 07:53 Pulse Ox 98 10/24/18 07:53 Intake & Output 10/23/18 10/24/18 10/24/18 18:59 06:59 18:59 Intake Total 120 1800 Output Total 500 600 300 Balance -380 1200 -300 Intake: Oral 120 1800 Output: Urine 200 600 300 Siegel 300 Other: # Bowel Movements 0 Assessment: []L total hip arthroplasty 10/22 Dr Hyde Plan: []WBAT posterior hip precautions eliquis 2.5 mg po BID for dvt prophylaxis Continue dry dressing changes daily D/C to [facility] rehab tomorrow <Randy Faith - Last Filed: 10/24/18 08:58> - Progress Note SOAP: Objective: Dressing changed, incision with well approximated wound edges, CDI without erythema or discharge. [] <Mari Davis - Last Filed: 10/24/18 12:13>
[2018-10-24] MEDS: Tiotropium CAP.INH* CAP.INH/18 MCG (USE ORDER SET !) INH SCH (09:13)
[2018-10-24] MEDS: Metoprolol Tartrate IV* 1 MG/ML 5 ML VIAL IV PRN (09:19)
[2018-10-24] MEDS: oxyCODONE TAB* 5 MG TAB PO PRN ×3 (10:05→19:26)
[2018-10-24] MEDS: Diltiazem TAB* 30 MG PO SCH ×3 (10:07→21:45)
[2018-10-24] MEDS: Magnesium Hydroxide LIQ* 30 ML UDC PO PRN (10:16)
--- NOTE | 2018-10-24 15:06 | PN ---
Subjective Date of Service: 10/24/18 Interval History: Patient seen and examined, getting ready for PT this am. States she is feeling well, surgical pain well controlled. Denies SOB, no chest pain, no fevers or chills. Tolerating PO. Family History: Unchanged from Admission Social History: Unchanged from Admission Past Medical History: Unchanged from Admission Objective Active Medications: Acetaminophen (Tylenol Tab*) 650 mg PO Q4H PRN PRN Reason: FEVER/PAIN Last Admin: 10/24/18 08:55 Dose: 650 mg Albuterol (Ventolin 2.5 Mg/3 Ml Neb.Jenna*) 2.5 mg INH Q4H PRN PRN Reason: SOB/WHEEZING Apixaban (Eliquis*) 2.5 mg PO Q12H [facility] Last Admin: 10/24/18 05:28 Dose: 2.5 mg Device (Tiotropium Inhaler Device*) 1 each INH .USE w/ SPIRIVA CAPS [facility] Diltiazem HCl (Cardizem Tab*) 30 mg PO Q6H [facility] Last Admin: 10/24/18 10:07 Dose: 30 mg Docusate Sodium (Colace Cap*) 100 mg PO 0900,2100 [facility] Last Admin: 10/24/18 08:57 Dose: 100 mg Sodium Chloride (Ns 0.9% 1000 Ml) 1,000 mls @ 75 mls/hr IV PER RATE [facility] Last Admin: 10/24/18 08:52 Dose: 75 mls/hr Magnesium Hydroxide (Milk Of Magnesia Liq*) 30 ml PO Q6H PRN PRN Reason: CONSTIPATION Last Admin: 10/24/18 10:16 Dose: 30 ml Metoprolol Succinate (Toprol Xl Tab*) 25 mg PO 0900 [facility] Last Admin: 10/24/18 08:57 Dose: 25 mg Metoprolol Tartrate (Lopressor Iv*) 5 mg IV Q6H PRN PRN Reason: HEART RATE/PULSE Last Admin: 10/24/18 09:19 Dose: 5 mg Mometasone Furoate/Formoterol Fumar (Dulera 200/5 Mdi*) 2 puff INH 0900,2100 [facility] Last Admin: 10/24/18 08:57 Dose: 2 puff Ondansetron HCl (Zofran Inj*) 4 mg IV Q4H PRN PRN Reason: NAUSEA/VOMITING Last Admin: 10/22/18 12:39 Dose: 4 mg Oxycodone HCl (Roxycodone Tab*) 5 mg PO Q4H PRN PRN Reason: PAIN Last Admin: 10/24/18 10:05 Dose: 5 mg Pantoprazole Sodium (Protonix Tab*) 40 mg PO 0900 [facility] Last Admin: 10/24/18 08:58 Dose: 40 mg Senna (Senokot Tab*) 1 tab PO 0900,2100 [facility] Last Admin: 10/24/18 08:58 Dose: 1 tab Tiotropium [place] (Spiriva Cap.Inh*) 1 cap INH 0900 [facility] Last Admin: 10/24/18 09:13 Dose: 1 cap Vital Signs - 8 hr 10/24/18 10/24/18 10/24/18 07:53 08:00 09:19 Temperature 97.4 F Pulse Rate 62 103 Respiratory 16 18 18 Rate Blood Pressure 111/73 121/64 (mmHg) O2 Sat by Pulse 98 98 Oximetry 10/24/18 10/24/18 10/24/18 10:00 10:05 10:07 Temperature Pulse Rate 64 46 Respiratory 18 Rate Blood Pressure 101/53 (mmHg) O2 Sat by Pulse 94 Oximetry 10/24/18 11:17 Temperature 98.2 F Pulse Rate 92 Respiratory 16 Rate Blood Pressure 96/65 (mmHg) O2 Sat by Pulse 93 Oximetry Oxygen Devices in Use Now: Nasal Cannula Appearance: alert, NAD Eyes: No Scleral Icterus, PERRLA Ears/Nose/Mouth/Throat: NL Teeth, Lips, Gums, Mucous Membranes Moist Neck: NL Appearance and Movements; NL JVP, Trachea Midline Respiratory: Symmetrical Chest Expansion and Respiratory Effort, Clear to Auscultation Cardiovascular: NL Sounds; No Murmurs; No JVD, RRR, No Edema Abdominal: NL Sounds; No Tenderness; No Distention, No Hepatosplenomegaly Skin: No Rash or Ulcers, - - dressing CDI Neurological: Alert and Oriented x 3 Nutrition: Taking PO's Result Diagrams: 10/24/18 05:16 10/23/18 09:11 Additional Lab and Data: . Microbiology and Other Data: . Assess/Plan/Problems-Billing Assessment: Ms. Saab is a 78 yo F with PMH of paroxsymal afib, dCHF, HTN, and GERD; who presented to the ED after a mechanical fall with subsequent hip pain and was found to have a left femoral neck fracture. Developed sepsis criteria on 10/19 with fever, tachycardia, and leukocytosis - thought to be secondary to UTI but cultures negative, question if related to atlectasis or viral process. Then developed acute on chronic diastolic CHF secondary to IVF for sepsis and COPD, now resolved. - Patient Problems (1) Fracture of femoral neck, left Code(s): S72.002A - FRACTURE OF UNSP PART OF NECK OF LEFT FEMUR, INIT SNOMED Code(s): 7659501 Comment: - POD2 - POC as per orthopedics - PT/OT, pain control, eliquis (2) COPD (chronic obstructive pulmonary disease) Code(s): J44.9 - CHRONIC OBSTRUCTIVE PULMONARY DISEASE, UNSPECIFIED SNOMED Code(s): 77339911 Comment: - With post-op hypoxia 2/2 COPD and fluid overload - Weaned to 2L oxygen, goal sat>90 - Continue Dulera, Spiriva, albuterol (3) Chronic diastolic congestive heart failure Code(s): I50.32 - CHRONIC DIASTOLIC (CONGESTIVE) HEART FAILURE SNOMED Code(s) : 375664790 Comment: - Diuresed, however was hypovolemic and hypotensive yesterday - Continue BB - TTE with EF 50-55% and no significant valvular or wall motion abnormalities (4) GERD (gastroesophageal reflux disease) Code(s): K21.9 - GASTRO-ESOPHAGEAL REFLUX DISEASE WITHOUT ESOPHAGITIS SNOMED Code(s): 290583181 Comment: - Continue pantoprazole (5) Hypertension Code(s): I10 - ESSENTIAL (PRIMARY) HYPERTENSION SNOMED Code(s): 55592758 Comment: - Persistent hypotension yesterday that responded well to fluid bolus - Continue BB for rate control, hold losartan (6) Paroxysmal atrial fibrillation Code(s): I48.0 - PAROXYSMAL ATRIAL FIBRILLATION SNOMED Code(s): 610531056 Comment: - RVR improved on BB and volume status correction but still having runs of tachycardia - Initiated cardizem 30mg PO Q6h for better HR control - Hold warfarin, on eliquis post-op (7) Sepsis Comment: - Code sepsis for fever, tachycardia, tachypnea, leukocytosis on 10/19 - Resolved, likely viral vs COPD exac? No source identified (8) UTI (urinary tract infection) Comment: - Siegel DC'd voiding freely, ceftriaxone DC, culture negative (9) DVT prophylaxis Code(s): JAI0855 - SNOMED Code(s): 884778449 Comment: - Jayashree (10) Full code status Code(s): Z78.9 - OTHER SPECIFIED HEALTH STATUS SNOMED Code(s): 547486975 Comment: Status and Disposition: Inpatient, has bed at [facility] when medically stable, anticipate tomorrow.
[2018-10-25] MEDS: Diltiazem TAB* 30 MG PO SCH ×2 (03:33→10:05)
[2018-10-25] MEDS: oxyCODONE TAB* 5 MG TAB PO PRN ×3 (03:34→14:03)
[2018-10-25] MEDS: NS 0.9% 1000 ML** 1,000 ML IV SCH (04:34)
[2018-10-25] MEDS: Apixaban* 2.5 MG TAB PO SCH (05:16)
[2018-10-25] MEDS: Acetaminophen TAB* 325 MG PO PRN (05:16)
[2018-10-25 07:04] LABS: Hematocrit 35 % (33-41); Hemoglobin 11.4 g/dL (12.0-16.0); Mean Platelet Volume 7.5 fL (7.4-10.4); Platelet Count 261 10^3/uL (150-450)
[2018-10-25] MEDS: Magnesium Hydroxide LIQ* 30 ML UDC PO PRN (07:48)
[2018-10-25] MEDS ORDERED: Glycerin ADULT SUPP PR ONE (08:37)
[2018-10-25] MEDS: Mometasone/Formoter 200/5 MDI INH SCH (08:39)
[2018-10-25] MEDS: Senna TAB PO SCH (08:40)
[2018-10-25] MEDS: Metoprolol Succinate XL TAB* 25 MG PO SCH (08:40)
[2018-10-25] MEDS: Tiotropium CAP.INH* CAP.INH/18 MCG (USE ORDER SET !) INH SCH (08:40)
[2018-10-25] MEDS: Docusate CAP* 100 MG PO SCH (08:40)
[2018-10-25] MEDS: Pantoprazole TAB * 40 MG TAB PO SCH (08:41)
[2018-10-25 12:09] VITALS: BP 114/57
--- NOTE | 2018-10-25 13:36 | DS ---
CC: Dr. Simon Arciniega; Dr. Xavier; Dr. Hyde* DISCHARGE SUMMARY: DATE OF ADMISSION: 10/18/18 DATE OF DISCHARGE: 10/25/18 PRIMARY CARE PROVIDER: Dr. Simon Arciniega MY ATTENDING FOR THIS DISCHARGE: Dr. Lucretia Xavier* (dictated by Jazmine Tepmle NP). CHIEF COMPLAINT: Fall with left hip injury. HOSPITAL COURSE: Please refer to admitting H and P dated 10/18/18, but in short , Ms. Saab is a 78-year-old female patient with a history of atrial fibrillation, on anticoagulation, who presented to the emergency department after having a fall. She did not report any precipitating factors. Normally she ambulates unassisted. She had imaging in the emergency department and was found to have a left hip fracture. Surgery was recommended when medically cleared. The patient was given pain medication and admitted. The patient's course was complicated by postoperative sepsis. The patient was meeting criteria for sepsis with some tachycardia, hypotension, and desaturation. She also had a temperature of 102.5. The patient was subsequently transferred to the ICU. She was given fluid resuscitation. Blood cultures were checked. Her lactic acid remained normal. There was some concern whether the urine was a source of her sepsis; however, her urine culture was also negative. After aggressive fluid administration for her sepsis, the patient did have some underlying diastolic failure in which she was fluid overloaded. She was diuresed. She remained oxygen dependent but she also had some underlying emphysema, COPD, which had been likely not diagnosed in the outpatient setting, so she remained hypoxic. The patient was being monitored very closely in the ICU during this time. Once she was euvolemic, she was transferred to the surgical floor. The patient did have some transient tachycardia and some of her AFib was exacerbated likely by changes in volume status. She was being given metoprolol at her usual dose and Lopressor for episodes of tachycardia, however, with her blood pressure being still low, metoprolol was held on several occasions. The patient remained hypotensive. Her lungs at that point were dry and she actually did appear to be volume depleted. Then, at that point , she received another 1 L bolus of fluid and maintenance fluids thereafter. Her blood pressure normalized, her heart rate came down. She remained in atrial fibrillation but her rapid ventricular response resolved. She was having episodes of tachycardia with ambulation, likely stress induced because of her fracture and repair. We started her on Cardizem 30 mg q.6 hours with good effect. She did ambulate with physical therapy yesterday, had her Siegel catheter removed. She is voiding freely. Her pain is well controlled. She was placed on Eliquis postoperatively for DVT prophylaxis and her Coumadin was held. Essentially, over the last 24 hours, she has progressed as expected and has been cleared by Orthopedics for discharge to subacute rehab. The patient does have bed acceptance at [facility]. She will be transferred there today via stretcher. DISCHARGE DIAGNOSES: 1. Fracture of the left femoral neck, status post left total hip arthroplasty. 2. Chronic obstructive pulmonary disease with postoperative hypoxia, now resolving. 3. Chronic diastolic heart failure with acute exacerbation, now resolved. 4. History of gastroesophageal reflux disease, stable. 5. Hypertension with episodes of hypotension, now resolved. 6. Paroxysmal atrial fibrillation, controlled. 7. Sepsis, resolved. 8. Urinary tract infection, resolved. DISCHARGE MEDICATIONS: Include: 1. Tylenol 650 mg q.4 hours p.o. as needed. 2. Albuterol nebulizer 2.5 mg inhaled q.4 hours as needed. 3. Eliquis 5 mg p.o. b.i.d. 4. Spiriva 18 mcg inhaled once daily. 5. Diltiazem 30 mg p.o. q.6 hours. 6. Colace 100 mg 2 times a day. 7. Milk of magnesia 30 mL p.o. q.6 hours. 8. Metoprolol succinate XL 25 mg p.o. daily at 9 a.m. 9. Dulera 200/5 two puffs inhaled 2 times a day as scheduled. 10. Oxycodone 5 mg p.o. q.4 hours as needed. 11. Protonix 40 mg p.o. daily. 12. Senna 1 tab p.o. 2 times a day. Changes to medications: The patient was taken off her losartan, taken off her warfarin and her furosemide has been held. Aspirin has also been held. Instead of Prevacid, she is now taking Protonix. REVIEW OF SYSTEMS: On the day of discharge, the patient denies any fever, fatigue, or chills. She does have some pain in the hip, which is well controlled. She denies any chest pain. No acute shortness of breath, no nausea , no vomiting, no urinary complaints, no bowel complaints, and no further constitutional complaints. PHYSICAL EXAMINATION: Today, she is well appearing, in no acute distress. Vital signs are blood pressure 114/57; heart rate 83, irregular; respiratory rate 14; temperature is 98.1; O2 saturation is variable between 89% and 93% on 1 L nasal cannula. HEENT: The patient is atraumatic, normocephalic. PERRLA with nonicteric sclerae. Oral mucosa is moist. Tongue is midline. Neck is supple. Nontender. No JVD noted. No carotid bruit auscultated. Cardiovascular : S1, S2 present. No murmurs, gallops, or rubs noted. Rate is controlled in the 80s, rhythm is irregular. She has atrial fibrillation on telemetry. Lungs are clear bilaterally to auscultation, mildly diminished at the bases, but no wheezing, rhonchi, or rales. Abdomen is soft, nontender, and nondistended. Positive bowel sounds in 4 quadrants. : Deferred. Musculoskeletal: There is no clubbing, no cyanosis, no edema. She has +2 distal pulses palpable. She has some point tenderness over the left hip region. Dressing is clean, dry, and intact. No drainage, erythema, or ecchymosis noted. She has some limited range of motion secondary to pain. Gross motor and sensation are otherwise intact. Neurologic: Grossly intact with no focal deficits. Psychiatric: She is cooperative and appropriate. LABORATORY DATA: On 10/25/18: Hemoglobin 11.4, hematocrit 35, platelets 261. Chemistry on 10/23/18: Sodium 138, potassium 4.0, chloride 105, CO2 27, BUN 17 , creatinine 0.53, GFR 111.6, glucose 111, calcium 8.2, magnesium was 1.9. DIAGNOSTIC STUDIES: Imaging: The patient did have a CTA of the chest on , which showed no pulmonary emboli, findings which in the proper clinical setting can be seen in pulmonary hypertension, and also emphysema with right greater than left pleural effusions and associated lung volume loss. DISPOSITION: The patient will be discharged to [facility] for rehab. DIET: Heart healthy as tolerated. ACTIVITY: Progress activity as tolerated. DRESSINGS: Daily dressing changes with gauze and tape. DISCHARGE INSTRUCTIONS: She should remain on Eliquis for DVT prophylaxis for 1 month; however, we recommend continuing it thereafter for her chronic atrial fibrillation. FOLLOWUP: The patient was instructed to follow up with Orthopedics, with Dr. Hyde 10 days postop to have wound check and suture removal. The patient should also follow up with her PCP after discharge from rehab. The patient was discharged in stable condition. All questions were answered. The patient stated understanding of her discharge instructions, followups, and medications. JAZMINE TEMPLE NP [id number]/CPS #: [id number] ANNETTE
== END 2018-10-25 14:30 | DRG 469 ==
LOC: ED 16:38 → SSU 20:21 → MEDTELE 10-20 19:00 → SSU 10-21 08:47 → ICU 10-22 11:53 → SSU 10-23 10:30
PROVIDERS: ADMIT Pediatrics; ATTEND Internal Medicine
PROC: 0SRB04A Replacement of Left Hip Joint with Ceramic on Polyethylene Synthetic Substitute, Uncemented, Open Approach (ICD-10-PCS; principal; 2018-10-22 08:00)
DX: S72.002A Fracture of unspecified part of neck of left femur, initial encounter for closed fracture (principal); A41.9 Sepsis, unspecified organism; I50.33 Acute on chronic diastolic (congestive) heart failure; N39.0 Urinary tract infection, site not specified; I48.0 Paroxysmal atrial fibrillation; I11.0 Hypertensive heart disease with heart failure; M16.12 Unilateral primary osteoarthritis, left hip; K44.9 Diaphragmatic hernia without obstruction or gangrene; I27.20 Pulmonary hypertension, unspecified; R09.02 Hypoxemia; J43.9 Emphysema, unspecified; K21.9 Gastro-esophageal reflux disease without esophagitis; Z98.1 Arthrodesis status; Z88.0 Allergy status to penicillin; Z88.2 Allergy status to sulfonamides; Z87.440 Personal history of urinary (tract) infections; Z98.49 Cataract extraction status, unspecified eye; Z82.49 Family history of ischemic heart disease and other diseases of the circulatory system; Z87.891 Personal history of nicotine dependence; Z23 Encounter for immunization; Z99.81 Dependence on supplemental oxygen; Z79.01 Long term (current) use of anticoagulants; W54.1XXA Struck by dog, initial encounter; Y92.89 Other specified places as the place of occurrence of the external cause
CPT/HCPCS: 36415; 36620; 71045; 71275; 80048; 80053; 81003; 81015; 83605; 83735; 84484; 85014; 85018; 85025; 85049; 85610; 85730; 86850; 86900; 86901; 87040; 87086; 87641; 88305; 88311; 90686; 93005; 93306; 94640; 99285; A9270-GY; C1713; C1776; G8978-GP-CK; G8979-GP-CI; G8987-GO-CK; G8988-GO-CI; J0696; J0780; J1100; J1160; J1644; J1940; J2250; J2270; J2405; J2704; J2710; J3010; J3475; J3490; Q9967